=== PATIENT | male | born 1970 | race Caucasian/White ===

== ENCOUNTER 2018-02-03 20:19 | Emergency (ER) | payer OTHER ==
[2018-02-03 20:52] LABS: ADD MAN DIFF? NO
[2018-02-03 20:57] LABS: BASO # 0.1 x10^3/uL (0.0-0.2); BASO % 1 % (0-3); EOS # 0.4 x10^3/uL (0.0-0.7); EOS % 5 % (0-3); HEMATOCRIT 40.9 % (39.0-53.0); HEMOGLOBIN 14.3 g/dL (13.0-17.5); LYMPH # 1.7 x10^3/uL (1.0-4.8); LYMPH % 25 % (24-48); MEAN CORPUSCULAR HEMOGLOBIN 30 pg (25-35); MEAN CORPUSCULAR HGB CONC 35 g/dL (31-37); MEAN CORPUSCULAR VOLUME 87 fL (79-100); MONO # 0.4 x10^3/uL (0.0-1.1); MONO % 6 % (0-9); NEUT # 4.2 x10^3uL (1.8-7.7); NEUT % 62 % (31-73); PLATELET COUNT 145 x10^3/uL (140-400); RED BLOOD COUNT 4.72 x10^6/uL (4.30-5.70); RED CELL DISTRIBUTION WIDTH 13.3 % (11.5-14.5); WHITE BLOOD COUNT 6.8 x10^3/uL (4.0-11.0)
[2018-02-03 21:23] LABS: BILIRUBIN,URINE NEGATIVE (NEG); CLARITY,URINE CLEAR; COLOR,URINE YELLOW; GLUCOSE,URINE 500 mg/dL (NEG); NITRITE,URINE NEGATIVE (NEG); PROTEIN,URINE NEGATIVE (NEG-TRACE); UROBILINOGEN,URINE 0.2 mg/dL (0.2 mg/dL)
[2018-02-03 21:28] LABS: BACTERIA,URINE 0 /HPF (0-FEW); RBC,URINE 0 /HPF (0-2); SQUAMOUS EPITHELIAL CELL,UR OCC /LPF; WBC,URINE OCC /HPF (0-4)
[2018-02-03 21:40] LABS: ANION GAP 9 (6-14); BLOOD UREA NITROGEN 21 mg/dL (8-26); BUN/CREATININE RATIO 19 (6-20); CARBON DIOXIDE 27 mmol/L (21-32); CHLORIDE 103 mmol/L (98-107); CREATININE 1.1 mg/dL (0.7-1.3); GFR 71.1; GLUCOSE 190 mg/dL (70-99); POTASSIUM 4.1 mmol/L (3.5-5.1); SODIUM 139 mmol/L (136-145)
[2018-02-03 21:46] LABS: ALBUMIN 3.2 g/dL (3.4-5.0); ALBUMIN/GLOBULIN RATIO 0.7 (1.0-1.7); ALK PHOS 135 U/L (46-116); ALT (SGPT) 136 U/L (16-63); AST (SGOT) 73 U/L (15-37); TOTAL BILIRUBIN 0.4 mg/dL (0.2-1.0); TOTAL PROTEIN 7.6 g/dL (6.4-8.2)
[2018-02-03 21:51] LABS: TROPONINI < 0.017 ng/mL (0.000-0.055)
[2018-02-03 21:55] LABS: CKMB INDEX 0.9 % (0-4); CKMB MASS 1.4 ng/mL (0.0-3.6); CREATINE KINASE 150 U/L (39-308)
== END 2018-02-03 23:24 | disposition home or self-care (01) ==
LOC: ER 20:19
DX: R07.89 Other chest pain (principal); I10 Essential (primary) hypertension; E78.00 Pure hypercholesterolemia, unspecified; Z88.5 Allergy status to narcotic agent; Z88.8 Allergy status to other drugs, medicaments and biological substances
CPT/HCPCS: 36415; 71045; 80053; 81001; 82553; 84484; 85025; 85379; 93005; 99285-25

== ENCOUNTER → 2018-09-07 | Outpatient (CLI) | payer OTHER ==
[2018-02-03 23:15] VITALS: BP 109/60
--- NOTE | 2018-09-07 10:08 | KCIC ---
EXAM: Abdomen sonogram. HISTORY: Elevated liver enzymes laboratory values. TECHNIQUE: Sonographic imaging of the abdomen was performed. COMPARISON: None. FINDINGS: The liver is enlarged. There is hepatic steatosis. No focal hepatic lesion is seen. The common bile duct is upper normal in caliber to minimally dilated for patient age, measuring 5.6 mm. The gallbladder and right kidney are unremarkable. The pancreas, aorta and inferior vena cava are predominantly obscured due to body habitus and bowel gas. IMPRESSION: 1. Hepatomegaly and hepatic steatosis. 2. Predominantly obscured midline structures due to and body habitus and bowel gas. 3. Upper normal caliber to minimally dilated common bile duct for patient age. Electronically signed by: Joanna Farfan MD (09/07/2018 10:05 AM) [facility]
== END | disposition home or self-care (01) ==
LOC: KCIC US 09:07
PROVIDERS: ATTEND Family Medicine
DX: K76.0 Fatty (change of) liver, not elsewhere classified (principal); R16.0 Hepatomegaly, not elsewhere classified
CPT/HCPCS: 76705

== ENCOUNTER 2019-03-17 17:23 | Inpatient (IN) | payer OTHER ==
[~2019-03-17] VITALS: Ht 182.9 cm; Wt 159.3 kg
[2019-03-17] MEDS: IV NORMAL SALINE 1000ML BAG 1,000 ML IV SCH ×2 (05:00→22:55)
[2019-03-17] MEDS ORDERED: NITROGLYCERIN SUBLINGUAL 0.4 MG BOTTLE OF 25. SL PRN ×2 (17:45→20:30)
[2019-03-17] MEDS ORDERED: MORPHINE SULFATE 4 MG/ML VIAL. IV/SQ PRN (17:45)
[2019-03-17 17:56] LABS: BASO # 0.1 x10^3/uL (0.0-0.2); BASO % 1 % (0-3); EOS # 0.1 x10^3/uL (0.0-0.7); EOS % 1 % (0-3); HEMATOCRIT 39.8 % (39.0-53.0); HEMOGLOBIN 13.8 g/dL (13.0-17.5); LYMPH # 0.7 x10^3/uL (1.0-4.8); LYMPH % 6 % (24-48); MEAN CORPUSCULAR HEMOGLOBIN 30 pg (25-35); MEAN CORPUSCULAR HGB CONC 35 g/dL (31-37); MEAN CORPUSCULAR VOLUME 86 fL (79-100); MONO # 0.5 x10^3/uL (0.0-1.1); MONO % 4 % (0-9); NEUT # 10.6 x10^3/uL (1.8-7.7); NEUT % 89 % (31-73); PLATELET COUNT 127 x10^3/uL (140-400); RED BLOOD COUNT 4.64 x10^6/uL (4.30-5.70); RED CELL DISTRIBUTION WIDTH 13.9 % (11.5-14.5); WHITE BLOOD COUNT 11.9 x10^3/uL (4.0-11.0)
[2019-03-17 18:07] LABS: PROTHROMBIN TIME PATIENT 13.8 SEC (11.7-14.0)
[2019-03-17 18:10] LABS: CALCIUM 9.3 mg/dL (8.5-10.1); CREATININE 1.3 mg/dL (0.7-1.3); GFR 58.4; POTASSIUM 3.8 mmol/L (3.5-5.1)
[2019-03-17 18:14] LABS: ALBUMIN 3.7 g/dL (3.4-5.0); ALBUMIN/GLOBULIN RATIO 0.8 (1.0-1.7); MAGNESIUM 1.6 mg/dL (1.8-2.4); TOTAL BILIRUBIN 0.7 mg/dL (0.2-1.0); TOTAL PROTEIN 8.2 g/dL (6.4-8.2)
[2019-03-17 18:34] LABS: % BANDS 20 % (0-9); % EOS 1 % (0-5); % LYMPHS 9 % (24-48); % MONOS 3 % (0-10); % SEGS 67 % (35-66)
[2019-03-17 18:38] LABS: PLT ESTIMATE DECREASED (ADEQUATE); POLYCHROMASIA SLIGHT
[2019-03-17 19:10] LABS: BILIRUBIN,URINE NEGATIVE (NEG); CLARITY,URINE CLEAR; COLOR,URINE YELLOW; NITRITE,URINE NEGATIVE (NEG); PH,URINE 5.5; PROTEIN,URINE NEGATIVE (NEG-TRACE); UROBILINOGEN,URINE 0.2 mg/dL (0.2 mg/dL)
[2019-03-17 19:17] LABS: AMPHETAMINE/METHAMPHETAMINE NEG (NEG); BARBITURATES NEG (NEG); BENZODIAZEPINES NEG (NEG); CANNABINOIDS NEG (NEG); COCAINE NEG (NEG); METHADONE NEG (NEG); OPIATES NEG (NEG); PHENCYCLIDINE NEG (NEG)
[2019-03-17 19:26] LABS: BACTERIA,URINE 0 /HPF (0-FEW); RBC,URINE 0 /HPF (0-2); SQUAMOUS EPITHELIAL CELL,UR OCC /LPF; WBC,URINE OCC /HPF (0-4)
--- NOTE | 2019-03-17 19:26 | RAD ---
AP portable chest radiograph 03/17/2019 Clinical History: Chest pain. An AP erect portable digital radiograph of the chest was obtained. Comparison study is dated 01/14/2018. The cardiac and mediastinal silhouettes are within normal limits in size and configuration. No acute pulmonary infiltrate is seen. No pleural effusion or pneumothorax is noted. The osseous structures are grossly intact. Impression: No acute abnormality is seen. Electronically signed by: Bernard Ventura MD (03/17/2019 7:23 PM) [facility]
[2019-03-17] MEDS ORDERED: ONDANSETRON PF 4 MG/2 ML VIAL. IV PRN (20:30)
[2019-03-17] MEDS ORDERED: PIPERACILLIN/TAZOBACTAM 4.5 GM in IV NORMAL SALINE 100ML 100 ML IV ONE (20:30)
[2019-03-17] MEDS ORDERED: ACETAMINOPHEN 325 MG TABLET. PO PRN (20:30)
[2019-03-17] MEDS ORDERED: MORPHINE SULFATE 4 MG/ML VIAL. IV PRN (20:30)
--- NOTE | 2019-03-17 20:39 | PHYS DOC ---
Past Medical History Past Medical History: Diabetes-Type II, Hypertension, IN Additional Past Medical Histor: CELLULITIS Past Surgical History: Other Additional Past Surgical Histo: BILATERAL MENISCUS REPAIR TO KNEES Alcohol Use: Occasionally Drug Use: None Adult General Chief Complaint Chief Complaint: MULTIPLE COMPLAINTS HPI HPI Patient is a 48 year old male with history of 2 mild MIs per his own statement hypertension, diabetes type 2, who presents to the ED today complaining of 3 out of 10 substernal achy intermittent chest pain nonradiating in nature but also has right arm pain, symptoms began at 1 PM today. Patient is also complaining of nausea vomiting and diaphoresis. Denies any exacerbating or relieving factors to his symptoms. PCP Dr. Leland Gonzáles Review of Systems Review of Systems Constitutional: Denies fever or chills [] Eyes: Denies change in visual acuity, redness, or eye pain [] HENT: Denies nasal congestion or sore throat [] Respiratory: Denies cough or shortness of breath [] Cardiovascular: Reports substernal chest pain GI: Denies abdominal pain, nausea, vomiting, bloody stools or diarrhea [] : Denies dysuria or hematuria [] Musculoskeletal: Denies back pain or joint pain [] Integument: Denies rash or skin lesions [] Neurologic: Denies headache, focal weakness or sensory changes [] All other systems were reviewed and found to be within normal limits, except as documented in this note. Current Medications Current Medications Current Medications Medications (Trade) Dose Ordered Sig/Mariama Start Time Stop Time Status Last Admin Dose Admin Acetaminophen (Tylenol) 650 mg PRN Q4HRS PRN 03/17/19 20:30 03/18/19 20:29 UNV Morphine Sulfate (Morphine Sulfate) 4 mg PRN Q2HR PRN 03/17/19 20:30 03/18/19 20:29 UNV Nitroglycerin (Nitrostat) 0.4 mg PRN Q5MIN PRN 03/17/19 20:30 03/18/19 20:29 UNV Ondansetron HCl (Zofran) 4 mg PRN Q8HRS PRN 03/17/19 20:30 03/18/19 20:29 UNV Piperacillin Sod/ Tazobactam Sod 4.5 gm/Sodium Chloride 100 ml @ 200 mls/hr 1X ONCE 03/17/19 20:30 03/17/19 20:59 UNV Sodium Chloride 2,340 ml @ 2,340 mls/hr Q1H 03/17/19 20:16 UNV Allergies Allergies Allergies Coded Allergies Type Severity Reaction Last Updated Verified ibuprofen Allergy Severe Swelling 11/26/15 Yes naproxen Allergy Severe Swelling 11/26/15 Yes Physical Exam Physical Exam Constitutional: Obese patient. Well developed, well nourished, no acute distress, non-toxic appearance. [] HENT: Normocephalic, atraumatic, bilateral external ears normal, oropharynx moist, no oral exudates, nose normal. [] Eyes: PERRLA, EOMI, conjunctiva normal, no discharge. [] Neck: Normal range of motion, no tenderness, supple, no stridor. [] Cardiovascular:Heart rate regular rhythm, no murmur [] Lungs & Thorax: Bilateral breath sounds clear to auscultation [] Abdomen: Bowel sounds normal, soft, no tenderness, no masses, no pulsatile masses. [] Skin: Warm, dry, no erythema, no rash. [] Back: No tenderness, no CVA tenderness. [] Extremities: No tenderness, no cyanosis, no clubbing, ROM intact, bilateral lower extremities with palpable discoloration chronic in nature from previous cellulitis. There is scabbing wounds on the right craven. +2 bilateral pedal pu lses. Neurologic: Alert and oriented X 3, normal motor function, normal sensory function, no focal deficits noted. [] Psychologic: Affect normal, judgement normal, mood normal. [] Current Patient Data Vital Signs Vital Signs Date Time Temp Pulse Resp B/P (MAP) Pulse Ox O2 Delivery O2 Flow Rate FiO2 03/17/19 18:42 74 97/57 (70) 90 Nasal Cannula 2.0 03/17/19 17:30 98.8 16 98.8 Lab Values Laboratory Tests Test 03/17/19 17:50 03/17/19 19:05 White Blood Count 11.9 x10^3/uL (4.0-11.0) H Red Blood Count 4.64 x10^6/uL (4.30-5.70) Hemoglobin 13.8 g/dL (13.0-17.5) Hematocrit 39.8 % (39.0-53.0) Mean Corpuscular Volume 86 fL (79-100) Mean Corpuscular Hemoglobin 30 pg (25-35) Mean Corpuscular Hemoglobin Concent 35 g/dL (31-37) Red Cell Distribution Width 13.9 % (11.5-14.5) Platelet Count 127 x10^3/uL (140-400) L Neutrophils (%) (Auto) 89 % (31-73) H Lymphocytes (%) (Auto) 6 % (24-48) L Monocytes (%) (Auto) 4 % (0-9) Eosinophils (%) (Auto) 1 % (0-3) Basophils (%) (Auto) 1 % (0-3) Neutrophils # (Auto) 10.6 x10^3/uL (1.8-7.7) H Lymphocytes # (Auto) 0.7 x10^3/uL (1.0-4.8) L Monocytes # (Auto) 0.5 x10^3/uL (0.0-1.1) Eosinophils # (Auto) 0.1 x10^3/uL (0.0-0.7) Basophils # (Auto) 0.1 x10^3/uL (0.0-0.2) Segmented Neutrophils % 67 % (35-66) H Band Neutrophils % 20 % (0-9) H Lymphocytes % 9 % (24-48) L Monocytes % 3 % (0-10) Eosinophils % 1 % (0-5) Platelet Estimate Decreased (ADEQUATE) Polychromasia Slight Prothrombin Time 13.8 SEC (11.7-14.0) Prothrombin Time INR 1.1 (0.8-1.1) Activated Partial Thromboplast Time 29 SEC (24-38) Sodium Level 139 mmol/L (136-145) Potassium Level 3.8 mmol/L (3.5-5.1) Chloride Level 103 mmol/L (98-107) Carbon Dioxide Level 24 mmol/L (21-32) Anion Gap 12 (6-14) Blood Urea Nitrogen 21 mg/dL (8-26) Creatinine 1.3 mg/dL (0.7-1.3) Estimated GFR (Cockcroft-Gault) 58.4 BUN/Creatinine Ratio 16 (6-20) Glucose Level 163 mg/dL (70-99) H Calcium Level 9.3 mg/dL (8.5-10.1) Magnesium Level 1.6 mg/dL (1.8-2.4) L Total Bilirubin 0.7 mg/dL (0.2-1.0) Aspartate Amino Transferase (AST) 46 U/L (15-37) H Alanine Aminotransferase (ALT) 86 U/L (16-63) H Alkaline Phosphatase 134 U/L (46-116) H Creatine Kinase 166 U/L (39-308) Creatine Kinase MB (Mass) 1.2 ng/mL (0.0-3.6) Creatine Kinase MB Relative Index 0.7 % (0-4) Troponin I Quantitative < 0.017 ng/mL (0.000-0.055) SQ-Ikf-H-Type Natriuretic Peptide 51 pg/mL (0-124) Total Protein 8.2 g/dL (6.4-8.2) Albumin 3.7 g/dL (3.4-5.0) Albumin/Globulin Ratio 0.8 (1.0-1.7) L Thyroid Stimulating Hormone (TSH) 1.310 uIU/mL (0.358-3.74) Ethyl Alcohol Level < 10 mg/dL (0-10) Urine Collection Type Unknown Urine Color Yellow Urine Clarity Clear Urine pH 5.5 Urine Specific [place] 1.025 Urine Protein Negative mg/dL (NEG-TRACE) Urine Glucose (UA) 250 mg/dL (NEG) Urine Ketones (Stick) Negative mg/dL (NEG) Urine Blood Negative (NEG) Urine Nitrite Negative (NEG) Urine Bilirubin Negative (NEG) Urine Urobilinogen Dipstick 0.2 mg/dL (0.2 mg/dL) Urine Leukocyte Esterase Negative (NEG) Urine RBC 0 /HPF (0-2) Urine WBC Occ /HPF (0-4) Urine Squamous Epithelial Cells Occ /LPF Urine Bacteria 0 /HPF (0-FEW) Urine Opiates Screen Neg (NEG) Urine Methadone Screen Neg (NEG) Urine Barbiturates Neg (NEG) Urine Phencyclidine Screen Neg (NEG) Urine Amphetamine/Methamphetamine Neg (NEG) Urine Benzodiazepines Screen Neg (NEG) Urine Cocaine Screen Neg (NEG) Urine Cannabinoids Screen Neg (NEG) Urine Ethyl Alcohol Neg (NEG) Laboratory Tests 03/17/19 17:50 Laboratory Tests 03/17/19 17:50 EKG EKG [address] Francis sinus rhythm HR 87 no STEMI[] Radiology/Procedures Radiology/Procedures []PROCEDURE: PORTABLE CHEST 1V AP portable chest radiograph 03/17/2019 Clinical History: Chest pain. An AP erect portable digital radiograph of the chest was obtained. Comparison study is dated 01/14/2018. The cardiac and mediastinal silhouettes are within normal limits in size and configuration. No acute pulmonary infiltrate is seen. No pleural effusion or pneumothorax is noted. The osseous structures are grossly intact. Impression: No acute abnormality is seen. Electronically signed by: Bernard Ventura MD (03/17/2019 7:23 PM) [facility] DICTATED and SIGNED BY: BERNARD VENTURA MD DATE: 03/17/191922 Course & Med Decision Making Course & Med Decision Making Pertinent Labs and Imaging studies reviewed. (See chart for details) This is a 48-year-old male patient who presents to the ED today with complaints of chest pain, symptoms began today. Vitals on arrival to the ED temperature 98.8, heart rate 89, respirations 16, blood pressure 123/59, O2 sats 97% on room air. EKG is negative, chest x-ray is negative. Troponin is normal. CBC with a WBC of 11.9 with a left shift as well as bandemia. CMP with AST of 46, ALT of 86, a.m. care 134. Magnesium 1.6, IV magnesium was ordered. I went to reevaluate patient, he was diaphoretic again. He states he feels like he is having chills and breaking a fever. Temperature is normal. feels patient could be getting infection from the scabbed up regions on the right craven that were from previous cellulitis. I ordered more labwork including sepsis workup and kevin Spoke with Dr. Gonzáles who accepted patient for admission Dragon Disclaimer Dragon Disclaimer This electronic medical record was generated, in whole or in part, using a voice recognition dictation system. The HEART Score for CP Pts HEART Score for Chest Pain: HEART Score for Chest Pain Response (Comments) Value History Slighlty/Non-Suspicious 0 ECG Normal 0 Age >45 - < 65 1 Risk Factors 1 or 2 Risk Factors 1 Troponin < Normal Limit 0 Total 2 Risk Factors: Risk Factors: DM, Current or recent (<one month) smoker, HTN, HLP, family history of CAD, obesity. Risk Scores: Score 0 - 3: 2.5% MACE over next 6 weeks - Discharge Home Score 4 - 6: 20.3% MACE over next 6 weeks - Admit for Clinical Observation Score 7 - 10: 72.7% MACE over next 6 weeks - Early Invasive Strategies Departure Departure Impression: Primary Impression: Chest pain Disposition: ADMITTED INPATIENT Condition: STABLE Referrals: LELAND GONZÁLES MD (PCP) Problem Qualifiers Primary Impression: Chest pain Chest pain type: unspecified Qualified Codes: R07.9 - Chest pain, unspecified MALU SUNSHINE MANAGER RESPIRATORY Mar 17, 2019 20:39
--- NOTE | 2019-03-17 21:45 | NUR ---
The patient, LÓPEZ CABA, 48 y/o, M admitted by LELAND GONZÁLES MD, was given written information regarding hospital policies, unit procedures and contact persons. PT ARRIVED VIA CART FROM ER. 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 BROUGHT UP HIS CPAP. AND HIS HOME MEDS. THEN HAD MEDS TO ADD THAT WERE NOT BROUGHT. DID DIABETIC TEACHING. PT CHECKS BS ONCE A WEEK, HIS DR WANTS BID. HIS LOWER LEGS ARE REDDISH BROWN THIGHT AND THICK SKIN. RIGHT IS WORSE THEN THE LEFT. RIGHT HAS SCABS ON IT TWO SMALL ANTERIORLY. THAT HE SAID WAS FROM HIS LEGS WEEPING, AND THAT HE HAS HAD CELLULITIS BEFORE. Valuables were checked and DOCUMENTED IN THE CHART. LCRN .
[2019-03-17] MEDS ORDERED: MAGNESIUM SULFATE 1GM 100 ML IV ONE (22:30)
[2019-03-17 23:00] VITALS: BP 111/50
--- NOTE | 2019-03-18 00:33 | RAD ---
Ultrasound of the right upper quadrant of the abdomen 03/17/2019 CLINICAL HISTORY: Elevated liver function tests. TECHNIQUE: A real-time ultrasound examination of the right upper quadrant abdomen was performed. Multiple images were obtained. FINDINGS: Comparison study is dated 09/07/2018. The gallbladder is well-distended. No gallstones are visualized. The gallbladder wall thickness is within normal limits. No pericholecystic fluid is seen. The common bile duct measures 4 mm in diameter which is within normal limits. The liver is enlarged measuring 22.5 cm in length. Increased echogenicity of the liver parenchyma is seen consistent with fatty infiltration. The visualized portions of pancreas and right kidney are within normal limits. No free fluid is seen. IMPRESSION: Mild hepatomegaly with fatty infiltration. Otherwise negative study. Electronically signed by: Bernard Ventura MD (03/18/2019 12:30 AM) [facility]
[2019-03-18 03:00] VITALS: BP 137/60
[2019-03-18] MEDS: IV NORMAL SALINE 1000ML BAG 1,000 ML IV SCH ×2 (05:00→13:21)
[2019-03-18] MEDS ORDERED: ASPI81TA59 PO (05:12)
[2019-03-18] MEDS ORDERED: FURO20TA3 PO (05:12)
[2019-03-18] MEDS ORDERED: DOCU100T11 PO (05:18)
[2019-03-18] MEDS ORDERED: CHOL100013 PO (05:18)
[2019-03-18] MEDS ORDERED: INSU100V13 SQ (05:18)
[2019-03-18] MEDS ORDERED: POTA20TA82 PO (05:18)
[2019-03-18] MEDS ORDERED: OMEG1CAP29 PO (05:18)
[2019-03-18] MEDS ORDERED: METF10007 PO (05:18)
[2019-03-18] MEDS ORDERED: GLIM4TAB2 PO (05:20)
[2019-03-18] MEDS ORDERED: LOSA1TAB22 PO (05:20)
--- NOTE | 2019-03-18 05:40 | EKG ---
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
[2019-03-18 07:00] VITALS: BP 119/56
[2019-03-18 08:31] LABS: BASO % 0 % (0-3); EOS % 0 % (0-3); HEMATOCRIT 39.3 % (39.0-53.0); HEMOGLOBIN 13.5 g/dL (13.0-17.5); LYMPH # 0.6 x10^3/uL (1.0-4.8); LYMPH % 5 % (24-48); MEAN CORPUSCULAR HEMOGLOBIN 30 pg (25-35); MEAN CORPUSCULAR HGB CONC 35 g/dL (31-37); MEAN CORPUSCULAR VOLUME 86 fL (79-100); MONO # 0.4 x10^3/uL (0.0-1.1); MONO % 4 % (0-9); NEUT # 9.8 x10^3/uL (1.8-7.7); NEUT % 90 % (31-73); PLATELET COUNT 111 x10^3/uL (140-400); RED BLOOD COUNT 4.56 x10^6/uL (4.30-5.70); RED CELL DISTRIBUTION WIDTH 13.7 % (11.5-14.5); WHITE BLOOD COUNT 10.8 x10^3/uL (4.0-11.0)
[2019-03-18 08:32] LABS: ALBUMIN 3.3 g/dL (3.4-5.0); ALBUMIN/GLOBULIN RATIO 0.7 (1.0-1.7); CALCIUM 9.1 mg/dL (8.5-10.1); CREATININE 1.2 mg/dL (0.7-1.3); GFR 64.1; POTASSIUM 3.4 mmol/L (3.5-5.1); TOTAL BILIRUBIN 1.1 mg/dL (0.2-1.0)
[2019-03-18 08:53] LABS: MAGNESIUM 1.9 mg/dL (1.8-2.4)
[2019-03-18 08:57] LABS: CHOLESTEROL/HDL RATIO 3.3
--- NOTE | 2019-03-18 09:21 | PDOC2 ---
CARDIAC CONSULT DATE OF CONSULT Date of Consult DATE: 03/18/19 TIME: 09:16 REASON FOR CONSULT Reason for Consult: Chest pain REFERRING PHYSICIAN Referring Physician: Artie SOURCE Source: Chart review, Patient HISTORY OF PRESENT ILLNESS HISTORY OF PRESENT ILLNESS This is a pleasant 48 yo male admitted for complains of chest pain and right leg swelling. Reports no exertional CP, no HALL. 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 He has chronic LE dermatitis and has had cellulitis 2 yrs ago. His right leg started becoming red and tender yesterday. Reports that he has been doing well till yesterday at noon. He felt suddenly weak and no energy. and was feeling some chills. A litlle later he started having some chest tightness with some SOA and also some right arm tingling with some nausea. No vomiting. Reports no recent falls or injury. No recent long distance travel. No wheezing. Denies any PND or orthopnea. No palpitations or any syncopal spells but a little dizzy yesterday. Was told of CAD in the past but no VTE, arrhythmias. No bleeding or clotting disorders. PAST MEDICAL HISTORY Cardiovascular: CAD, HTN, Hyperlipidemia, Other (chronic LE venous dermatitis) Pulmonary: Other (RANJIT) CENTRAL NERVOUS SYSTEM: Other (No pertinent history) GI: No pertinent hx Heme/Onc: No pertinent hx Hepatobiliary: No pertinent hx Psych: No pertinent hx Musculoskeletal: Osteoarthritis Rheumatologic: No pertinent hx Infectious disease: No pertinent hx ENT: No pertinent hx Renal/: No pertinent hx Endocrine: Diabetes (2) Dermatology: No pertinent hx PAST SURGICAL HISTORY Past Surgical History: Arthroscopy (bilateral meniscus repair) FAMILY HISTORY Family History: Hypertension SOCIAL HISTORY Smoke: No ALCOHOL: none Drugs: None Lives: with Family CURRENT MEDICATIONS CURRENT MEDICATIONS Current Medications Medications (Trade) Dose Ordered Sig/Mariama Route PRN Reason Start Time Stop Time Status Last Admin Dose Admin Sodium Chloride 1,000 ml @ 2,340 mls/hr Q26M IV 03/17/19 20:16 03/17/19 21:16 DC 03/17/19 22:56 Piperacillin Sod/ Tazobactam Sod 4.5 gm/Sodium Chloride 100 ml @ 200 mls/hr 1X ONCE IV 03/17/19 20:30 03/17/19 20:59 DC 03/17/19 22:56 Morphine Sulfate (Morphine Sulfate) 4 mg PRN Q2HR PRN IV PAIN 03/17/19 20:30 03/18/19 20:29 03/18/19 02:15 Acetaminophen (Tylenol) 650 mg PRN Q4HRS PRN PO FEVER 03/17/19 20:30 03/18/19 20:29 03/18/19 08:45 Magnesium Sulfate/ Dextrose 100 ml @ 100 mls/hr 1X ONCE IV 03/17/19 22:30 03/17/19 23:29 DC 03/17/19 22:56 ALLERGIES ALLERGIES: Coded Allergies: ibuprofen (Verified Allergy, Severe, Swelling, 11/26/15) throat naproxen (Verified Allergy, Severe, Swelling, 11/26/15) throat ROS Review of System 14 point ROS evaluated with pertinent positives noted per HPI PHYSICAL EXAM General: Alert, Oriented X3, Cooperative, No acute distress HEENT: Atraumatic, Mucous membr. moist/pink Lungs: Clear to auscultation, Normal air movement Heart: Regular rate (SR), Normal S1, Normal S2, Other (GUNJAN 3/6 systolic murmur) Abdomen: Soft, No tenderness, Other (obese) Skin: No breakdown, Other (LE venous dermatitis; erythema to RLE; no wounds; 2+ pedal pulses) Neuro: Normal speech, Sensation intact Psych/Mental Status: Mental status NL, Mood NL MUSCULOSKELETAL: Osteoarthritic changes both hands VITALS/I&O VITALS/I&O: Vital Signs Date Time Temp Pulse Resp B/P (MAP) Pulse Ox O2 Delivery O2 Flow Rate FiO2 03/18/19 07:00 100.4 83 16 119/56 (77) 98 Nasal Cannula 3.0 100.4 I & O 03/17/19 03/17/19 03/18/19 14:59 22:59 06:59 Intake Total 800 ml Output Total 450 ml Balance 350 ml LABS Lab: Laboratory Tests Test 03/17/19 17:50 03/17/19 19:05 03/17/19 20:50 03/17/19 20:55 White Blood Count 11.9 x10^3/uL (4.0-11.0) H Red Blood Count 4.64 x10^6/uL (4.30-5.70) Hemoglobin 13.8 g/dL (13.0-17.5) Hematocrit 39.8 % (39.0-53.0) Mean Corpuscular Volume 86 fL (79-100) Mean Corpuscular Hemoglobin 30 pg (25-35) Mean Corpuscular Hemoglobin Concent 35 g/dL (31-37) Red Cell Distribution Width 13.9 % (11.5-14.5) Platelet Count 127 x10^3/uL (140-400) L Neutrophils (%) (Auto) 89 % (31-73) H Lymphocytes (%) (Auto) 6 % (24-48) L Monocytes (%) (Auto) 4 % (0-9) Eosinophils (%) (Auto) 1 % (0-3) Basophils (%) (Auto) 1 % (0-3) Neutrophils # (Auto) 10.6 x10^3/uL (1.8-7.7) H Lymphocytes # (Auto) 0.7 x10^3/uL (1.0-4.8) L Monocytes # (Auto) 0.5 x10^3/uL (0.0-1.1) Eosinophils # (Auto) 0.1 x10^3/uL (0.0-0.7) Basophils # (Auto) 0.1 x10^3/uL (0.0-0.2) Segmented Neutrophils % 67 % (35-66) H Band Neutrophils % 20 % (0-9) H Lymphocytes % 9 % (24-48) L Monocytes % 3 % (0-10) Eosinophils % 1 % (0-5) Platelet Estimate Decreased (ADEQUATE) Polychromasia Slight Prothrombin Time 13.8 SEC (11.7-14.0) Prothrombin Time INR 1.1 (0.8-1.1) Activated Partial Thromboplast Time 29 SEC (24-38) Sodium Level 139 mmol/L (136-145) Potassium Level 3.8 mmol/L (3.5-5.1) Chloride Level 103 mmol/L (98-107) Carbon Dioxide Level 24 mmol/L (21-32) Anion Gap 12 (6-14) Blood Urea Nitrogen 21 mg/dL (8-26) Creatinine 1.3 mg/dL (0.7-1.3) Estimated GFR (Cockcroft-Gault) 58.4 BUN/Creatinine Ratio 16 (6-20) Glucose Level 163 mg/dL (70-99) H Calcium Level 9.3 mg/dL (8.5-10.1) Magnesium Level 1.6 mg/dL (1.8-2.4) L Total Bilirubin 0.7 mg/dL (0.2-1.0) Aspartate Amino Transferase (AST) 46 U/L (15-37) H Alanine Aminotransferase (ALT) 86 U/L (16-63) H Alkaline Phosphatase 134 U/L (46-116) H Creatine Kinase 166 U/L (39-308) Creatine Kinase MB (Mass) 1.2 ng/mL (0.0-3.6) Creatine Kinase MB Relative Index 0.7 % (0-4) Troponin I Quantitative < 0.017 ng/mL (0.000-0.055) < 0.017 ng/mL (0.000-0.055) DZ-Bfn-L-Type Natriuretic Peptide 51 pg/mL (0-124) Total Protein 8.2 g/dL (6.4-8.2) Albumin 3.7 g/dL (3.4-5.0) Albumin/Globulin Ratio 0.8 (1.0-1.7) L Thyroid Stimulating Hormone (TSH) 1.310 uIU/mL (0.358-3.74) Ethyl Alcohol Level < 10 mg/dL (0-10) Urine Collection Type Unknown Urine Color Yellow Urine Clarity Clear Urine pH 5.5 Urine Specific [place] 1.025 Urine Protein Negative mg/dL (NEG-TRACE) Urine Glucose (UA) 250 mg/dL (NEG) Urine Ketones (Stick) Negative mg/dL (NEG) Urine Blood Negative (NEG) Urine Nitrite Negative (NEG) Urine Bilirubin Negative (NEG) Urine Urobilinogen Dipstick 0.2 mg/dL (0.2 mg/dL) Urine Leukocyte Esterase Negative (NEG) Urine RBC 0 /HPF (0-2) Urine WBC Occ /HPF (0-4) Urine Squamous Epithelial Cells Occ /LPF Urine Bacteria 0 /HPF (0-FEW) Urine Opiates Screen Neg (NEG) Urine Methadone Screen Neg (NEG) Urine Barbiturates Neg (NEG) Urine Phencyclidine Screen Neg (NEG) Urine Amphetamine/Methamphetamine Neg (NEG) Urine Benzodiazepines Screen Neg (NEG) Urine Cocaine Screen Neg (NEG) Urine Cannabinoids Screen Neg (NEG) Urine Ethyl Alcohol Neg (NEG) Lactic Acid Level 1.4 mmol/L (0.4-2.0) Test 03/17/19 23:50 03/18/19 00:35 03/18/19 07:25 Troponin I Quantitative < 0.017 ng/mL (0.000-0.055) Glucose (Fingerstick) 241 mg/dL (70-99) H White Blood Count 10.8 x10^3/uL (4.0-11.0) Red Blood Count 4.56 x10^6/uL (4.30-5.70) Hemoglobin 13.5 g/dL (13.0-17.5) Hematocrit 39.3 % (39.0-53.0) Mean Corpuscular Volume 86 fL (79-100) Mean Corpuscular Hemoglobin 30 pg (25-35) Mean Corpuscular Hemoglobin Concent 35 g/dL (31-37) Red Cell Distribution Width 13.7 % (11.5-14.5) Platelet Count 111 x10^3/uL (140-400) L Neutrophils (%) (Auto) 90 % (31-73) H Lymphocytes (%) (Auto) 5 % (24-48) L Monocytes (%) (Auto) 4 % (0-9) Eosinophils (%) (Auto) 0 % (0-3) Basophils (%) (Auto) 0 % (0-3) Neutrophils # (Auto) 9.8 x10^3/uL (1.8-7.7) H Lymphocytes # (Auto) 0.6 x10^3/uL (1.0-4.8) L Monocytes # (Auto) 0.4 x10^3/uL (0.0-1.1) Eosinophils # (Auto) 0.0 x10^3/uL (0.0-0.7) Basophils # (Auto) 0.0 x10^3/uL (0.0-0.2) Sodium Level 139 mmol/L (136-145) Potassium Level 3.4 mmol/L (3.5-5.1) L Chloride Level 103 mmol/L (98-107) Carbon Dioxide Level 26 mmol/L (21-32) Anion Gap 10 (6-14) Blood Urea Nitrogen 19 mg/dL (8-26) Creatinine 1.2 mg/dL (0.7-1.3) Estimated GFR (Cockcroft-Gault) 64.1 BUN/Creatinine Ratio 16 (6-20) Glucose Level 209 mg/dL (70-99) H Calcium Level 9.1 mg/dL (8.5-10.1) Magnesium Level 1.9 mg/dL (1.8-2.4) Total Bilirubin 1.1 mg/dL (0.2-1.0) H Aspartate Amino Transferase (AST) 40 U/L (15-37) H Alanine Aminotransferase (ALT) 79 U/L (16-63) H Alkaline Phosphatase 107 U/L (46-116) Total Protein 8.0 g/dL (6.4-8.2) Albumin 3.3 g/dL (3.4-5.0) L Albumin/Globulin Ratio 0.7 (1.0-1.7) L Triglycerides Level 126 mg/dL (0-150) Cholesterol Level 155 mg/dL (0-200) LDL Cholesterol, Calculated 83 mg/dL (0-100) VLDL Cholesterol, Calculated 25 mg/dL (0-40) Non-HDL Cholesterol Calculated 108 mg/dL (0-129) HDL Cholesterol 47 mg/dL (40-60) Cholesterol/HDL Ratio 3.3 Laboratory Tests 03/17/19 17:50 03/18/19 07:25 Laboratory Tests 03/17/19 17:50 03/18/19 07:25 ASSESSMENT/PLAN ASSESSMENT/PLAN 1. Chest pain: trops normal, EKG SR without acute changes by comparison. Differentials include such as bronchospasm, ischemia, PE, or esophagitis. 2. Suspect Sepsis with RLE cellulitis: defer to PCP. Neg DVT 3. HTN: controlled 4. HLP: initially hypotensive, no home statin 5. DM2: BG not controlled. 6. Morbid obesity: BMI 47, mostly sedentary 7. RANJIT: CPAP compliant 8. Suspect SANTIAGO with mild transaminitis 9. Thrombocytopenia: Suspect reactive 10. LE chronic venous dermatitis 11. Reported hx of CAD: [facility] 2008 reported [place], no intervention. 12. Murmur: suspect or calcification Recommendations 1. TTE, TSH, lipids, A1C, Check DDIMER. Will perform CAT chest if + 2. ASA. Hold BP meds for now, may start if BP starts to trend up, discussed with RN. 3. Will benefit from statin. Dietitian consult, wt loss. 4. RN to liban the erythema, antibiotics per PCP 5. Continue home CPAP 6. Ischemic workup as an outpt. KESHIA LAUREANO DIGITAL PRODUCT SPECIALIST Mar 18, 2019 09:21
--- NOTE | 2019-03-18 09:26 | PDOC ---
Provider Note Provider Note [id number] LELAND GONZÁLES MD Mar 18, 2019 09:26
--- NOTE | 2019-03-18 09:42 | HP ---
ADMIT DATE: 03/17/2019 CHIEF COMPLAINT: Chest pain and weakness. HISTORY OF PRESENT ILLNESS: A 48-year-old white male, diabetic, with morbid obesity and nonalcoholic fatty liver disease, came in with some vague atypical chest pain and pressure-like symptoms of fatigue and weakness. He also was felt to have some swelling in his right lower extremity and low-grade fever and ER put him on Zosyn pending results of blood cultures. He has had no further chest pain overnight. PAST HISTORY: Been on Basaglar for 3 months. He also takes metformin and glimepiride. He is also on losartan/HCT for hypertension. ALLERGIES: HE HAS ALLERGIES TO IBUPROFEN AND NAPROXEN. No previous cardiovascular history. SOCIAL HISTORY: Nonsmoker, nondrinker, , not physically active. He is employed. FAMILY HISTORY: Unremarkable. REVIEW OF SYSTEMS: No other known problems. OBJECTIVE: ENT: All within normal limits. NECK: No masses, nodes or bruits. LUNGS: Clear. CARDIOVASCULAR: Regular rate. No murmur. ABDOMEN: Obese, benign, nontender. EXTREMITIES: Right leg mildly swollen with some scabbed areas, mild redness. Pulses are good. NEUROLOGIC: Physiologic. LABORATORY STUDIES: Unremarkable. ASSESSMENT: Atypical chest pain with high risk factors in a poorly controlled diabetic, morbid obesity and hypertension. Right leg may have cellulitis, though deep venous thrombosis must be considered as well. PLAN: As ordered. LELAND GONZÁLES MD DR: IVIS/agnieszka JOB#: [id number] / [id number]
[2019-03-18] MEDS: LOSARTAN POTASSIUM 50 MG TABLET. PO SCH (10:00)
[2019-03-18] MEDS ORDERED: hydroCHLOROthiazide 25 MG TABLET PO SCH (10:00)
--- NOTE | 2019-03-18 10:14 | RAD ---
Right lower extremity venous doppler ultrasound History: Edema, right calf swelling Comparison: November 26, 2015 Findings: Multiple grayscale, color, and duplex spectral analysis sonographic images were acquired of the right lower extremity veins to evaluate for the presence of DVT. There is normal phasicity. Normal compression, color-flow, and augmentation is demonstrated from the right common femoral to the popliteal veins. There is normal color flow of the proximal greater saphenous and profunda femoris veins. There is normal color flow of segments of the calf veins. There is some edema of the soft tissues. Impression: 1. There is no evidence of deep venous thrombosis from the right common femoral to the popliteal veins. Electronically signed by: Kentrell Dillard MD (03/18/2019 10:11 AM) [id number]
[2019-03-18 11:00] VITALS: BP 96/49
[2019-03-18] MEDS ORDERED: IV NORMAL SALINE 1000ML BAG 1,000 ML IV ONE (11:00)
--- NOTE | 2019-03-18 11:33 | CARD ---
MR#: [id number] Date of Study: 03/18/2019 Ordering Physician: KESHIA LAUREANO, Referring Physician: KESHIA LAUREANO Tech: Jeannine Blevins RDCS APPROVED REPORT EXAM: Two-dimensional and M-mode echocardiogram with Doppler and color Doppler. Other Information Quality : Fair INDICATION Chest Pain Morbid Obesity 2D DIMENSIONS RVDd2.9 (2.9-3.5cm)Left Atrium(2D)3.8 (1.6-4.0cm) IVSd1.3 (0.7-1.1cm)Aortic Root(2D)3.4 (2.0-3.7cm) LVDd5.0 (3.9-5.9cm)LVOT Diameter2.3 (1.8-2.4cm) PWd1.2 (0.7-1.1cm)LVDs4.5 (2.5-4.0cm) FS (%) 4.0 %SV10.3 ml LVEF(%)55.0 (>50%) Aortic Valve AoV Peak Isacc.182.8cm/sAoV VTI29.0cm AO Peak GR.13.4mmHgLVOT Peak Isacc.139.2cm/s AO Mean GR.8mmHgAVA (VMAX)3.22cm2 LEXUS (VTI)3.70cm2 Mitral Valve MV E Fkmdacst288.4cm/sMV DECEL [id number] MV A Ffzxiprf823.6cm/sE/A Ratio1.2 Pulmonary Vein S1 Vuyttrsa40.5cm/sD2 Jueeqhba33.4cm/s LEFT VENTRICLE The left ventricle is normal size. There is normal left ventricular wall thickness. The left ventricu lar systolic function is normal and the ejection fraction is within normal range. The Ejection Fracti on is 60-65%. There is normal LV segmental wall motion. Transmitral Doppler flow pattern is Grade I-a bnormal relaxation pattern. RIGHT VENTRICLE The right ventricle is normal size. The right ventricular systolic function is normal. ATRIA The left atrium size is normal. The right atrium size is normal. The interatrial septum is intact wit h no evidence for an atrial septal defect or patent foramen ovale as noted on 2-D or Doppler imaging. AORTIC VALVE The aortic valve is calcified but opens well. Doppler and Color Flow revealed no significant aortic r egurgitation. There is no significant aortic valvular stenosis. MITRAL VALVE The mitral valve is normal in structure and function. There is no evidence of mitral valve prolapse. There is no mitral valve stenosis. Doppler and Color Flow revealed no mitral valve regurgitation note d. TRICUSPID VALVE The tricuspid valve is normal in structure and function. Doppler and Color Flow revealed no tricuspid valve regurgitation noted. There is no tricuspid valve stenosis. PULMONIC VALVE The pulmonic valve is not well visualized. Doppler and Color Flow revealed no pulmonic valvular regur gitation. There is no pulmonic valvular stenosis. GREAT VESSELS The aortic root is normal in size. The ascending aorta is not well seen. The IVC is normal in size an d collapses >50% with inspiration. PERICARDIAL EFFUSION There is no evidence of significant pericardial effusion. Critical Notification Critical Value: No <Conclusion> The left ventricle is normal size. The left ventricular systolic function is normal and the ejection fraction is within normal range. The Ejection Fraction is 60-65%. There is no significant aortic valvular stenosis. Doppler and Color Flow revealed no significant aortic regurgitation. Doppler and Color Flow revealed no mitral valve regurgitation noted. Doppler and Color Flow revealed no tricuspid valve regurgitation noted. There is no evidence of significant pericardial effusion. Signed by : Valentín Guerin MD Electronically Approved : 03/18/2019 11:32:35
[2019-03-18] MEDS ORDERED: IOHEXOL 350 MG/ML 100 ML VIAL. IV ONE (12:00)
[2019-03-18] MEDS: GLIMEPIRIDE 2 MG TABLET. PO SCH (13:11)
[2019-03-18] MEDS: ASPIRIN CHEWABLE 81 MG TABLET. PO SCH (13:11)
[2019-03-18] MEDS: PIPERACILLIN/TAZOBACTAM 3.375 GM in IV NORMAL SALINE 50ML 50 ML IV SCH ×2 (13:22→18:43)
--- NOTE | 2019-03-18 13:27 | NUR ---
SS following for discharge planning. SS reviewed pt chart. Pt is from home with spouse and is currently requiring oxygen. No discharge needs noted at this time. SS will continue to follow for discharge planning.
--- NOTE | 2019-03-18 14:55 | RAD ---
Examination: CT ANGIOGRAPHY CHEST History: Chest pain and dyspnea Comparison/Correlation: 03/17/2019 portable chest x-ray exam Findings: Axial images of chest were obtained following IV contrast report arteriography protocol. MIP images were provided. Evaluation of the distal pulmonary arterial vasculature is limited due to suboptimal opacification which appears to be due to transient interruption of contrast. Sagittal pulmonary arterial vasculature is unremarkable. Thoracic aorta is grossly unremarkable although not optimally opacified for arteriographic assessment. No enlarged thoracic lymph nodes. Few nonspecific low-attenuation regions involving the lung quintero are small in size. No pleural or pericardial effusion. No pneumothorax. Tracheal bronchial tree is unremarkable. Minimal lingular atelectasis or scarring at the anterior basilar aspect is present. Bony structures are unremarkable. Impression: No central pulmonary arterial vasculature thromboembolic disease. This examination is not adequate for evaluation of distal pulmonary arterial vasculature due to limited pulmonary arterial opacification. No acute infiltrates. PQRS Compliance Statement: One or more of the following individualized dose reduction techniques were utilized for this examination: 1. Automated exposure control 2. Adjustment of the mA and/or kV according to patient size 3. Use of iterative reconstruction technique Electronically signed by: Isaias Hutchison MD (03/18/2019 2:52 PM) [facility]
[2019-03-18 15:00] VITALS: BP 125/63
[2019-03-18] MEDS ORDERED: metFORMIN 500 MG TABLET PO SCH (17:00)
[2019-03-18] MEDS ORDERED: CONTRAST GIVEN. MC PRN (17:15)
[2019-03-18] MEDS: POTASSIUM CHLORIDE 20 MEQ TABLET.ER. PO SCH (18:43)
[2019-03-18 19:18] VITALS: BP 116/49
[2019-03-18] MEDS ORDERED: INSULIN GLARGINE SYRINGE. SQ SCH (21:00)
[2019-03-18] MEDS: ACETAMINOPHEN 325 MG TABLET. PO PRN (21:45)
[2019-03-18 22:28] VITALS: BP 104/52
[2019-03-19] MEDS: PIPERACILLIN/TAZOBACTAM 3.375 GM in IV NORMAL SALINE 50ML 50 ML IV SCH ×5 (00:30→23:56)
[2019-03-19 01:08] LABS: HEMOGLOBIN A1C 8.9 % (4.8-5.6)
[2019-03-19 03:14] VITALS: BP 122/56
[2019-03-19 07:00] VITALS: BP 124/67
[2019-03-19] MEDS: ASPIRIN CHEWABLE 81 MG TABLET. PO SCH (08:20)
[2019-03-19] MEDS: POTASSIUM CHLORIDE 20 MEQ TABLET.ER. PO SCH ×2 (08:20→09:00)
[2019-03-19] MEDS: ACETAMINOPHEN 325 MG TABLET. PO PRN ×2 (08:21→20:35)
[2019-03-19] MEDS: GLIMEPIRIDE 2 MG TABLET. PO SCH (08:21)
--- NOTE | 2019-03-19 08:53 | PDOC ---
Provider Note Provider Note vss, still some temp- no more chest pain bur R leg pain and redness same despite zosyn- ct neg , no wound cult done in er- elaine add vanco for mrsa cover, add more lantus, move to floor LELAND GONZÁLES MD Mar 19, 2019 08:53
[2019-03-19] MEDS ORDERED: INSULIN GLARGINE SYRINGE. SQ ONE (09:00)
[2019-03-19] MEDS: hydroCHLOROthiazide 25 MG TABLET PO SCH (09:00)
[2019-03-19] MEDS: LOSARTAN POTASSIUM 50 MG TABLET. PO SCH (09:00)
[2019-03-19] MEDS: VANCOMYCIN 1.25 GM in IV NORMAL SALINE 250ML 250 ML IV SCH ×2 (10:36→20:36)
[2019-03-19 11:00] VITALS: BP 107/55
[2019-03-19 14:40] VITALS: BP 130/56
--- NOTE | 2019-03-19 15:00 | NUR ---
pt arrived to unit at 1430 in stable condition. pt is alert and oriented and on RA. pt is not having any pain at this time. pt is requesting to take a shower. assessment completed and pt is set up for shower. call light is within reach. received report from NAKUL Richards on 2S. will continue to monitor.
--- NOTE | 2019-03-19 15:04 | PDOC ---
PROGRESS NOTES Subjective Subjective Patient seen and examined The patient is feeling better today. Objective Objective Vital Signs Date Time Temp Pulse Resp B/P (MAP) Pulse Ox O2 Delivery O2 Flow Rate FiO2 03/19/19 14:45 Room Air 03/19/19 11:00 98.8 65 18 107/55 (72) 96 2.0 98.8 Intake and Output 03/19/19 07:00 Intake Total 800 ml Output Total 475 ml Balance 325 ml Intake Oral 800 ml Output Urine Total 475 ml # Voids 12 Physical Exam Abdomen: Normal bowel sounds Heart: Regular rate General: No acute distress Lungs: Clear to auscultation Assessment Assessment Problems Medical Problems: (1) HTN (hypertension) Status: Chronic (2) Morbid obesity Status: Chronic (3) RANJIT (obstructive sleep apnea) Status: Chronic (4) Poorly controlled diabetes mellitus Status: Chronic Chest pain. Resolved. No acute EKG changes. Normal troponin. Echocardiogram with normal LV function. Continue present treatments and monitoring at this time. Lower extremity cellulitis. Antibiotics and workup as per the primary service. No evidence of DVT. Hypertension. Controlled on present medications. Hyperlipidemia Morbid obesity. Obstructive sleep apnea on CPAP. Reported history of coronary artery disease. Heart catheterization in 2008 required no intervention. Normal LV systolic function on echo. Continue medical treatment. Possible outpatient ischemia workup. Comment Review of Relevant I have reviewed the following items liban (where applicable) has been applied. Labs Laboratory Tests Test 03/17/19 17:50 03/17/19 19:05 03/17/19 20:50 03/17/19 20:55 White Blood Count 11.9 x10^3/uL (4.0-11.0) Red Blood Count 4.64 x10^6/uL (4.30-5.70) Hemoglobin 13.8 g/dL (13.0-17.5) Hematocrit 39.8 % (39.0-53.0) Mean Corpuscular Volume 86 fL (79-100) Mean Corpuscular Hemoglobin 30 pg (25-35) Mean Corpuscular Hemoglobin Concent 35 g/dL (31-37) Red Cell Distribution Width 13.9 % (11.5-14.5) Platelet Count 127 x10^3/uL (140-400) Neutrophils (%) (Auto) 89 % (31-73) Lymphocytes (%) (Auto) 6 % (24-48) Monocytes (%) (Auto) 4 % (0-9) Eosinophils (%) (Auto) 1 % (0-3) Basophils (%) (Auto) 1 % (0-3) Neutrophils # (Auto) 10.6 x10^3/uL (1.8-7.7) Lymphocytes # (Auto) 0.7 x10^3/uL (1.0-4.8) Monocytes # (Auto) 0.5 x10^3/uL (0.0-1.1) Eosinophils # (Auto) 0.1 x10^3/uL (0.0-0.7) Basophils # (Auto) 0.1 x10^3/uL (0.0-0.2) Segmented Neutrophils % 67 % (35-66) Band Neutrophils % 20 % (0-9) Lymphocytes % 9 % (24-48) Monocytes % 3 % (0-10) Eosinophils % 1 % (0-5) Platelet Estimate Decreased (ADEQUATE) Polychromasia Slight Prothrombin Time 13.8 SEC (11.7-14.0) Prothromb Time International Ratio 1.1 (0.8-1.1) Activated Partial Thromboplast Time 29 SEC (24-38) Sodium Level 139 mmol/L (136-145) Potassium Level 3.8 mmol/L (3.5-5.1) Chloride Level 103 mmol/L (98-107) Carbon Dioxide Level 24 mmol/L (21-32) Anion Gap 12 (6-14) Blood Urea Nitrogen 21 mg/dL (8-26) Creatinine 1.3 mg/dL (0.7-1.3) Estimated GFR (Cockcroft-Gault) 58.4 BUN/Creatinine Ratio 16 (6-20) Glucose Level 163 mg/dL (70-99) Calcium Level 9.3 mg/dL (8.5-10.1) Magnesium Level 1.6 mg/dL (1.8-2.4) Total Bilirubin 0.7 mg/dL (0.2-1.0) Aspartate Amino Transf (AST/SGOT) 46 U/L (15-37) Alanine Aminotransferase (ALT/SGPT) 86 U/L (16-63) Alkaline Phosphatase 134 U/L (46-116) Creatine Kinase 166 U/L (39-308) Creatine Kinase MB (Mass) 1.2 ng/mL (0.0-3.6) Creatine Kinase MB Relative Index 0.7 % (0-4) Troponin I Quantitative < 0.017 ng/mL (0.000-0.055) < 0.017 ng/mL (0.000-0.055) OH-Mdq-A-Type Natriuretic Peptide 51 pg/mL (0-124) Total Protein 8.2 g/dL (6.4-8.2) Albumin 3.7 g/dL (3.4-5.0) Albumin/Globulin Ratio 0.8 (1.0-1.7) Thyroid Stimulating Hormone (TSH) 1.310 uIU/mL (0.358-3.74) Ethyl Alcohol Level < 10 mg/dL (0-10) Urine Collection Type Unknown Urine Color Yellow Urine Clarity Clear Urine pH 5.5 Urine Specific [place] 1.025 Urine Protein Negative mg/dL (NEG-TRACE) Urine Glucose (UA) 250 mg/dL (NEG) Urine Ketones (Stick) Negative mg/dL (NEG) Urine Blood Negative (NEG) Urine Nitrite Negative (NEG) Urine Bilirubin Negative (NEG) Urine Urobilinogen Dipstick 0.2 mg/dL (0.2 mg/dL) Urine Leukocyte Esterase Negative (NEG) Urine RBC 0 /HPF (0-2) Urine WBC Occ /HPF (0-4) Urine Squamous Epithelial Cells Occ /LPF Urine Bacteria 0 /HPF (0-FEW) Urine Opiates Screen Neg (NEG) Urine Methadone Screen Neg (NEG) Urine Barbiturates Neg (NEG) Urine Phencyclidine Screen Neg (NEG) Urine Amphetamine/Methamphetamine Neg (NEG) Urine Benzodiazepines Screen Neg (NEG) Urine Cocaine Screen Neg (NEG) Urine Cannabinoids Screen Neg (NEG) Urine Ethyl Alcohol Neg (NEG) Lactic Acid Level 1.4 mmol/L (0.4-2.0) Test 03/17/19 23:50 03/18/19 00:35 03/18/19 07:25 03/18/19 11:42 Troponin I Quantitative < 0.017 ng/mL (0.000-0.055) Glucose (Fingerstick) 241 mg/dL (70-99) 200 mg/dL (70-99) White Blood Count 10.8 x10^3/uL (4.0-11.0) Red Blood Count 4.56 x10^6/uL (4.30-5.70) Hemoglobin 13.5 g/dL (13.0-17.5) Hematocrit 39.3 % (39.0-53.0) Mean Corpuscular Volume 86 fL (79-100) Mean Corpuscular Hemoglobin 30 pg (25-35) Mean Corpuscular Hemoglobin Concent 35 g/dL (31-37) Red Cell Distribution Width 13.7 % (11.5-14.5) Platelet Count 111 x10^3/uL (140-400) Neutrophils (%) (Auto) 90 % (31-73) Lymphocytes (%) (Auto) 5 % (24-48) Monocytes (%) (Auto) 4 % (0-9) Eosinophils (%) (Auto) 0 % (0-3) Basophils (%) (Auto) 0 % (0-3) Neutrophils # (Auto) 9.8 x10^3/uL (1.8-7.7) Lymphocytes # (Auto) 0.6 x10^3/uL (1.0-4.8) Monocytes # (Auto) 0.4 x10^3/uL (0.0-1.1) Eosinophils # (Auto) 0.0 x10^3/uL (0.0-0.7) Basophils # (Auto) 0.0 x10^3/uL (0.0-0.2) D-Dimer (Nelsy) 0.56 ug/mlFEU (0.00-0.50) Sodium Level 139 mmol/L (136-145) Potassium Level 3.4 mmol/L (3.5-5.1) Chloride Level 103 mmol/L (98-107) Carbon Dioxide Level 26 mmol/L (21-32) Anion Gap 10 (6-14) Blood Urea Nitrogen 19 mg/dL (8-26) Creatinine 1.2 mg/dL (0.7-1.3) Estimated GFR (Cockcroft-Gault) 64.1 BUN/Creatinine Ratio 16 (6-20) Glucose Level 209 mg/dL (70-99) Hemoglobin A1c 8.9 % (4.8-5.6) Calcium Level 9.1 mg/dL (8.5-10.1) Magnesium Level 1.9 mg/dL (1.8-2.4) Total Bilirubin 1.1 mg/dL (0.2-1.0) Aspartate Amino Transf (AST/SGOT) 40 U/L (15-37) Alanine Aminotransferase (ALT/SGPT) 79 U/L (16-63) Alkaline Phosphatase 107 U/L (46-116) Total Protein 8.0 g/dL (6.4-8.2) Albumin 3.3 g/dL (3.4-5.0) Albumin/Globulin Ratio 0.7 (1.0-1.7) Triglycerides Level 126 mg/dL (0-150) Cholesterol Level 155 mg/dL (0-200) LDL Cholesterol, Calculated 83 mg/dL (0-100) VLDL Cholesterol, Calculated 25 mg/dL (0-40) Non-HDL Cholesterol Calculated 108 mg/dL (0-129) HDL Cholesterol 47 mg/dL (40-60) Cholesterol/HDL Ratio 3.3 Test 03/18/19 17:35 03/18/19 20:34 03/19/19 08:31 03/19/19 12:27 Glucose (Fingerstick) 149 mg/dL (70-99) 183 mg/dL (70-99) 159 mg/dL (70-99) 218 mg/dL (70-99) Laboratory Tests Test 03/18/19 17:35 03/18/19 20:34 03/19/19 08:31 03/19/19 12:27 Glucose (Fingerstick) 149 mg/dL (70-99) 183 mg/dL (70-99) 159 mg/dL (70-99) 218 mg/dL (70-99) Microbiology 03/17/19 Blood Culture - Preliminary, Resulted NO GROWTH AFTER 1 DAY Medications Current Medications Nitroglycerin (Nitrostat) 0.4 mg PRN Q5MIN PRN SL CP RATING > 1/10; Start 03/17/19 at 17:45; Stop 03/18/19 at 09:26; Status DC Morphine Sulfate (Morphine Sulfate) 4 mg PRN Q15MIN PRN IV/SQ PAIN GREATER THAN 3/10; Start 03/17/19 at 17:45; Stop 03/18/19 at 11:38; Status DC Sodium Chloride 1,000 ml @ 2,340 mls/hr Q26M IV Last administered on 03/18/19at 13:30; Start 03/17/19 at 20:16; Stop 03/17/19 at 21:16; Status DC Piperacillin Sod/ Tazobactam Sod 4.5 gm/Sodium Chloride 100 ml @ 200 mls/hr 1X ONCE IV Last administered on 03/17/19at 22:56; Start 03/17/19 at 20:30; Stop 03/17/19 at 20:59; Status DC Ondansetron HCl (Zofran) 4 mg PRN Q8HRS PRN IV NAUSEA/VOMITING; Start 03/17/19 at 20:30; Stop 03/18/19 at 20:29; Status DC Morphine Sulfate (Morphine Sulfate) 4 mg PRN Q2HR PRN IV PAIN Last administered on 03/18/19at 02:15; Start 03/17/19 at 20:30; Stop 03/18/19 at 20:29; Status DC Acetaminophen (Tylenol) 650 mg PRN Q4HRS PRN PO FEVER Last administered on 03/18/19at 08:45; Start 03/17/19 at 20:30; Stop 03/18/19 at 20:29; Status DC Nitroglycerin (Nitrostat) 0.4 mg PRN Q5MIN PRN SL CHEST PAIN; Start 03/17/19 at 20:30; Stop 03/18/19 at 20:29; Status DC Magnesium Sulfate/ Dextrose 100 ml @ 100 mls/hr 1X ONCE IV Last administered on 03/17/19at 22:56; Start 03/17/19 at 22:30; Stop 03/17/19 at 23:29; Status DC Aspirin (Children'S Aspirin) 81 mg DAILY PO Last administered on 03/19/19at 08:29; Start 03/18/19 at 10:00 Glimepiride (Amaryl) 4 mg DAILY08 PO Last administered on 03/19/19 08:29; Start 03/18/19 at 11:00 Insulin Glargine (Lantus Syringe) 35 unit QHS SQ Last administered on 03/18/19at 21:49; Start 03/18/19 at 21:00; Stop 03/19/19 at 08:52; Status DC Losartan Potassium (Cozaar) 100 mg DAILY PO ; Start 03/18/19 at 10:00 Metformin HCl (Glucophage) 1,000 mg BIDWMEALS PO ; Start 03/18/19 at 17:00; Status Cancel Potassium Chloride (Klor-Con) 20 meq BIDWMEALS PO Last administered on 03/19/19at 08:29; Start 03/18/19 at 17:00; Stop 03/19/19 at 08:52; Status DC Hydrochlorothiazide (Hydrodiuril) 25 mg DAILY PO ; Start 03/18/19 at 10:00; Stop 03/19/19 at 08:52; Status DC Sodium Chloride 1,000 ml @ 100 mls/hr 1X ONCE IV Last administered on 03/18at 19:17; Start 03/18/19 at 11:00; Stop 03/18/19 at 20:59; Status DC Iohexol (Omnipaque 350 Mg/ml) 100 ml 1X ONCE IV Last administered on 03/18/19at 12:20; Start 03/18/19 at 12:00; Stop 03/18/19 at 12:01; Status DC Piperacillin Sod/ Tazobactam Sod 3.375 gm/Sodium Chloride 50 ml @ 100 mls/hr Q6HRS IV Last administered on 03/19/19at 13:06; Start 03/18/19 at 13:00 Metformin HCl (Glucophage) 1,000 mg BIDWMEALS PO ; Start 03/20/19 at 17:00 Info (CONTRAST GIVEN -- Rx MONITORING) 1 each PRN DAILY PRN MC SEE COMMENTS; Start 03/18/19 at 17:15; Stop 03/20/19 at 17:14 Acetaminophen (Tylenol) 650 mg PRN QID PRN PO FEVER Last administered on 03/19/19at 08:29; Start 03/18/19 at 21:30 Hydrochlorothiazide (Hydrodiuril) 12.5 mg DAILY PO ; Start 03/19/19 at 09:00 Insulin Glargine (Lantus Syringe) 50 unit QHS SQ ; Start 03/19/19 at 21:00 Potassium Chloride (Klor-Con) 20 meq DAILY08 PO ; Start 03/19/19 at 09:00 Vancomycin HCl 1.25 gm/Sodium Chloride 250 ml @ 167 mls/hr Q12H IV Last administered on 03/19/19at 10:44; Start 03/19/19 at 09:00 Insulin Glargine (Lantus Syringe) 10 unit 1X ONCE SQ Last administered on 03/19/19at 10:55; Start 03/19/19 at 09:00; Stop 03/19/19 at 09:02; Status DC Active Scripts Active Reported Losartan-Hctz 100-25 Mg Tab (Losartan/Hydrochlorothiazide) 1 Each Tablet 1 Tab PO DAILY Glimepiride 4 Mg Tablet 1 Tab PO DAILY Levemir (Insulin Detemir) 100 Unit/1 Ml Vial 35 Unit SQ QHS Metformin Hcl 1,000 Mg Tablet 1,000 Mg PO BIDWMEALS Fish Oil 500 Mg Softgel ([place]-3/Dha/Epa/Fish Oil) 1 Each Capsule 1 Each PO BIDBFRMEAL Stool Softener (Docusate Sodium) 100 Mg Tablet 100 Mg PO QHS Potassium Chloride 20 Meq Tablet.er 20 Meq PO BID Vitamin D (Cholecalciferol (Vitamin D3)) 1,000 Unit Capsule 1 Cap PO DAILY PRN Children's Aspirin (Aspirin) 81 Mg Tab.chew 81 Mg PO QHS PRN Furosemide 20 Mg Tablet 1 Tab PO DAILY Vitals/I & O Vital Sign - Last 24 Hours 03/18/19 03/18/19 03/18/19 03/19/19 19:18 20:00 22:28 03:14 Temp 102.0 101.6 98.7 102.0 101.6 98.7 Pulse 82 78 67 Resp 14 18 16 B/P (MAP) 116/49 (71) 104/52 (69) 122/56 (78) Pulse Ox 99 98 100 O2 Delivery Nasal Cannula Nasal Cannula Nasal Cannula Nasal Cannula O2 Flow Rate 3.0 2.0 3.0 3.0 03/19/19 03/19/19 03/19/19 03/19/19 07:00 08:00 11:00 14:45 Temp 99.2 98.8 99.2 98.8 Pulse 74 65 Resp 18 18 B/P (MAP) 124/67 (86) 107/55 (72) Pulse Ox 99 96 O2 Delivery Nasal Cannula Nasal Cannula Nasal Cannula Room Air O2 Flow Rate 2.0 3.0 2.0 Intake and Output 03/18/19 03/18/19 03/19/19 15:00 23:00 07:00 Intake Total 800 ml Output Total 475 ml Balance -475 ml 800 ml FILIPE ENGLISH MD Mar 19, 2019 15:04
[2019-03-19 19:00] VITALS: BP 112/59
[2019-03-19 23:00] VITALS: BP 115/72
[2019-03-19] MEDS: INSULIN GLARGINE SYRINGE. SQ SCH (23:05)
[2019-03-20 03:00] VITALS: BP 123/73
[2019-03-20] MEDS: ACETAMINOPHEN 325 MG TABLET. PO PRN ×3 (04:49→21:19)
[2019-03-20] MEDS: PIPERACILLIN/TAZOBACTAM 3.375 GM in IV NORMAL SALINE 50ML 50 ML IV SCH ×3 (06:12→17:39)
[2019-03-20 07:00] VITALS: BP 99/52
[2019-03-20] MEDS ORDERED: VANCOMYCIN PER PHARMACY MC PRN (08:30)
[2019-03-20] MEDS: LOSARTAN POTASSIUM 50 MG TABLET. PO SCH (09:00)
[2019-03-20] MEDS: hydroCHLOROthiazide 25 MG TABLET PO SCH (09:00)
[2019-03-20] MEDS: GLIMEPIRIDE 2 MG TABLET. PO SCH (09:10)
[2019-03-20] MEDS: ASPIRIN CHEWABLE 81 MG TABLET. PO SCH (09:11)
[2019-03-20] MEDS: POTASSIUM CHLORIDE 20 MEQ TABLET.ER. PO SCH (09:11)
[2019-03-20 09:13] LABS: CREATININE 1.1 mg/dL (0.7-1.3); GFR 70.9; VANC TR 5.7 mcg/mL (10.0-20.0)
--- NOTE | 2019-03-20 09:46 | NUR ---
Pharmacy Vancomycin Dosing Note S: Consulted to monitor and dose vancomycin started 03/19/19. O: LÓPEZ CABA is a 48 year old M with Cellulitis. Other Antibiotics: ZOSYN 3.375G IV Q6HRS LABS: Last BUN: 19 Last Creatinine: 1.1 Creatinine Clearance: > 100 mL/min Last WBC: 10.8 Last Procalcitonin: - Tmax (past 24 hours): 102 Microbiology: BLOOD CX (03/17): NGTD I/O: 800/475 Drug Levels: Last Trough level: 5.7 (75% steady state trough) on 03/20/19 at 0830 Last dose given 03/19/19 at 2030 Vancomycin Dosing: Dosing Weight: Actual Target Trough: 10-20 A: Patient was initiated on vancomycin 1250 mg IV q12hrs. A 75% steady state trough was 5.7 (est to be 7.5 at steady state). Patient's renal function is stable. Change to the following: P: 1. Change to Vancomycin 2000 mg IV q12h 2. Follow up level in 5-7 days if needed 3. Pharmacy will continue to monitor, follow and adjust therapy as needed. KARYN RON [facility] [place], 03/20/19 [id number]
--- NOTE | 2019-03-20 09:54 | PDOC ---
GENERAL General: vss and tmax still to 102 last 24 hours. does admit to fair amount of pain right lower leg. venous stasis changes bilaterally with cellulitis changes right lower leg and couple of open areas from trauma. chest clear, heart regular, abdomen benign, cultures negative to date. will ask for ID opinion with ongoing fevers 3 day into IV antibiotics. VITAL SIGNS/I&O Vital Signs/I&O: Vital Signs Date Time Temp Pulse Resp B/P (MAP) Pulse Ox O2 Delivery O2 Flow Rate FiO2 03/20/19 09:06 62 99/52 03/20/19 07:00 98.2 14 97 Room Air 98.2 03/19/19 11:00 2.0 I & O 03/19/19 03/19/19 03/20/19 14:59 22:59 06:59 Intake Total 250 ml 250 ml Balance 250 ml 250 ml ALLERGIES Allergies: Allergies Coded Allergies Type Severity Reaction Last Updated Verified ibuprofen Allergy Severe Swelling 11/26/15 Yes naproxen Allergy Severe Swelling 11/26/15 Yes MEDS Medications: Current Medications Medications (Trade) Dose Ordered Sig/Mariama Route PRN Reason Start Time Stop Time Status Last Admin Dose Admin Insulin Glargine (Lantus Syringe) 50 unit QHS SQ 03/19/19 21:00 03/19/19 23:05 Vancomycin HCl (Vanco Per Pharmacy) 1 each PRN DAILY PRN MC SEE COMMENTS 03/20/19 08:30 03/20/19 09:46 LAB Lab: Laboratory Tests Test 03/19/19 12:27 03/19/19 23:00 03/20/19 04:35 03/20/19 08:02 Glucose (Fingerstick) 218 mg/dL (70-99) H 213 mg/dL (70-99) H 189 mg/dL (70-99) H Platelet Count 106 x10^3/uL (140-400) L Test 03/20/19 08:40 Creatinine 1.1 mg/dL (0.7-1.3) Estimated GFR (Cockcroft-Gault) 70.9 Vancomycin Level Trough 5.7 mcg/mL (10.0-20.0) L Vancomycin Last Dose Date Unknown Vancomycin Last Dose Time Unknown Laboratory Tests 03/20/19 04:35 Laboratory Tests 03/20/19 08:40 YULIANA LOWRY MD Mar 20, 2019 09:54
[2019-03-20] MEDS ORDERED: VANCOMYCIN 2 GM in IV NORMAL SALINE 500ML BAG 500 ML IV SCH (10:00)
[2019-03-20 11:00] VITALS: BP 123/57
[2019-03-20] MEDS: MICAFUNGIN 100 MG in IV DEXTROSE 5% 100ML 100 ML IV SCH (12:45)
--- NOTE | 2019-03-20 12:48 | TS ---
DATE OF TRANSFER: 03/20/2019 REFERRING PHYSICIAN: Dr. Kentrell Tello. REASON FOR CONSULTATION: Fever with cellulitis. HISTORY OF PRESENT ILLNESS: A 48-year-old male with history of diabetes mellitus, obesity, hypertension, hyperlipidemia, presented to the ER on 03/17/2019 with chest pain with achiness intermittently and also right arm pain. The patient had complaints of headache, low-grade fevers, subjective chills, nausea, vomiting, diaphoresis. ID was ruled out. The patient had white count of 11.9. High LFTs. Lactate of 1.4, glucose of 241. Hemoglobin A1c of 8.9. He was found to have bilateral lower extremity redness, swelling, more on the right side. Doppler of lower extremity was negative for DVT. He underwent a chest x-ray, which showed no acute abnormality. He underwent CTA of the chest, which showed no acute changes. No thromboembolic disease. He underwent ultrasound of the abdomen due to elevated LFTs, which showed mild hepatomegaly with fatty infiltration, otherwise negative. The patient was started on Zosyn yesterday. He was febrile at 102, so was started on vancomycin. This morning, he had a fever of 100.2, so ID consult has been requested for antibiotic management. Today, the patient states he feels a little better. Right lower extremity swelling, redness, pain is improving. He has dry cough. He has headache whenever he bumps a fever. Denies any vision disturbances, blurred vision, oral sores, difficulty swallowing, nausea, vomiting, diarrhea, abdominal pain, symptoms. The patient has a cold sore on the lip, which he says has come up after he started having fevers here. Denies any dizziness or neurologic weakness. He has chronic venous stasis in both the lower extremities with current swelling, redness and pain, which he has had before he knew this was cellulitis coming in before admission. He denies any history of trauma, denies any outdoor activities. Denies any recreational activities. Denies any recent travel or procedure. Denies any recent immunization. Denies taking any new medication. PAST MEDICAL HISTORY: Morbid obesity, diabetes, hypertension with a history of chest pain, bilateral chronic venous stasis changes. ALLERGIES: IBUPROFEN, NAPROXEN. SOCIAL HISTORY: Denies smoking, ETOH, or illicit drug use. 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 , lives with and children, one dog, healthy. No outdoor activities as above. REVIEW OF SYSTEMS: Negative except for above in HPI. PHYSICAL EXAMINATION: VITAL SIGNS: Temperature 100.2, T-max 102, pulse 64, respirations 16, blood pressure 123/57, oxygen saturation 98% on room air. GENERAL: Alert and oriented x 3, pleasant male, ambulating in room without difficulty. Cooperative. HEENT: Normocephalic, atraumatic, anicteric. No thrush. Oral mucosa is moist. Oral sores over the upper lip. No oropharyngeal exudate. NECK: Supple, no JVD. LUNGS: Clear bilaterally. No wheezing. HEART: S1, S2. No gallops and no murmurs. ABDOMEN: Soft, obese. Bowel sounds present, nontender, nondistended, no rebound, no guarding. EXTREMITIES: Bilateral chronic venous stasis changes present in the right lower extremity. Swelling, erythema, tenderness blisters and a few superficial excoriation. No purulence noted. Tinea present. DERMATOLOGIC: Warm, dry. No generalized rash except for above. CENTRAL NERVOUS SYSTEM: Alert and oriented x 3, grossly nonfocal. PSYCHIATRIC: Cooperative, appropriate mood and affect. LABORATORY DATA: WBC 10.8, hemoglobin 13.5, hematocrit 39.3, platelets 111. Chemistry: Creatinine 1.1, potassium 3.4, chloride 103, bicarbonate 26. BUN 19, creatinine 1.2, glucose 209, AST 40, ALT 79, total bilirubin 1.1, albumin 3.3. Micro blood culture negative so far. IMAGIN. Chest CT as above. 2. Lower extremity ultrasound as above. 3. Ultrasound of the abdomen as above. 4. Chest x-ray as above. IMPRESSION: 1. Febrile illness, etiology likely right lower extremity cellulitis. 2. Right lower extremity cellulitis with underlying chronic venous stasis dermatitis. 3. Tinea. 4. Diabetes. 5. Chest pain. Workup negative so far. 6. Abnormal LFTs, improving. RECOMMENDATIONS: 1. Discontinue IV vancomycin as he is requiring 2 grams IV q.12 and to avoid nephrotoxicity. 2. Continue Zosyn. 3. Start Zyvox. 4. Start micafungin. 5. Elevate right lower extremity. 6. Monitor labs and cultures. 7. Continue supportive care. Thank you, Dr. Tello for consulting Infectious Disease to participate in this patient's care. If you have any questions, do not hesitate to contact us. YOLANDA KASPER MD DR: CHASE/agnieszka JOB#: [id number] / [id number] HUAN
[2019-03-20] MEDS: LINEZOLID 600 MG TABLET PO SCH ×2 (13:49→21:11)
[2019-03-20 15:00] VITALS: BP 127/63
[2019-03-20] MEDS: metFORMIN 500 MG TABLET PO SCH (17:04)
[2019-03-20 19:00] VITALS: BP 116/68
[2019-03-20] MEDS: LACTOBACILLUS RHAMNOSUS GG 1 CAPSULE. PO SCH (21:11)
[2019-03-20] MEDS: INSULIN GLARGINE SYRINGE. SQ SCH (21:14)
[2019-03-20 23:00] VITALS: BP 114/66
[2019-03-21] MEDS: PIPERACILLIN/TAZOBACTAM 3.375 GM in IV NORMAL SALINE 50ML 50 ML IV SCH ×5 (00:10→23:53)
[2019-03-21 03:00] VITALS: BP 110/55
[2019-03-21] MEDS: ACETAMINOPHEN 325 MG TABLET. PO PRN ×3 (06:06→19:20)
[2019-03-21 07:00] VITALS: BP 114/61
[2019-03-21] MEDS: GLIMEPIRIDE 2 MG TABLET. PO SCH (08:13)
[2019-03-21] MEDS: metFORMIN 500 MG TABLET PO SCH ×2 (08:14→17:08)
[2019-03-21] MEDS: LACTOBACILLUS RHAMNOSUS GG 1 CAPSULE. PO SCH ×2 (08:15→21:38)
[2019-03-21] MEDS: LOSARTAN POTASSIUM 50 MG TABLET. PO SCH ×2 (08:15→12:45)
[2019-03-21] MEDS: ASPIRIN CHEWABLE 81 MG TABLET. PO SCH (08:15)
[2019-03-21] MEDS: POTASSIUM CHLORIDE 20 MEQ TABLET.ER. PO SCH (08:15)
[2019-03-21] MEDS: LINEZOLID 600 MG TABLET PO SCH ×2 (08:16→21:38)
[2019-03-21] MEDS: hydroCHLOROthiazide 25 MG TABLET PO SCH ×2 (08:16→12:45)
[2019-03-21 09:59] LABS: BASO % 1 % (0-3); EOS # 0.2 x10^3/uL (0.0-0.7); EOS % 3 % (0-3); HEMATOCRIT 36.5 % (39.0-53.0); HEMOGLOBIN 12.7 g/dL (13.0-17.5); LYMPH % 15 % (24-48); MEAN CORPUSCULAR HEMOGLOBIN 30 pg (25-35); MEAN CORPUSCULAR HGB CONC 35 g/dL (31-37); MEAN CORPUSCULAR VOLUME 86 fL (79-100); MONO # 0.4 x10^3/uL (0.0-1.1); MONO % 6 % (0-9); NEUT # 4.9 x10^3/uL (1.8-7.7); NEUT % 75 % (31-73); PLATELET COUNT 128 x10^3/uL (140-400); RED BLOOD COUNT 4.25 x10^6/uL (4.30-5.70); RED CELL DISTRIBUTION WIDTH 13.8 % (11.5-14.5); WHITE BLOOD COUNT 6.5 x10^3/uL (4.0-11.0)
[2019-03-21 10:19] LABS: ALBUMIN 2.5 g/dL (3.4-5.0); ALBUMIN/GLOBULIN RATIO 0.5 (1.0-1.7); CALCIUM 8.6 mg/dL (8.5-10.1); CREATININE 1.1 mg/dL (0.7-1.3); GFR 70.9; POTASSIUM 3.7 mmol/L (3.5-5.1); TOTAL BILIRUBIN 0.6 mg/dL (0.2-1.0); TOTAL PROTEIN 7.7 g/dL (6.4-8.2)
--- NOTE | 2019-03-21 10:51 | PDOC ---
Infectious Disease Note Subjective: Subjective Pt is doing better less pain and swelling in the rt leg fever pattern improving ROS: ROS Negative otherwise. Vital Signs: Vital Signs Vital Signs Date Time Temp Pulse Resp B/P (MAP) Pulse Ox O2 Delivery O2 Flow Rate FiO2 03/21/19 08:16 65 114/61 03/21/19 07:00 99.3 16 98 Room Air 99.3 Physical Exam: PHYSICAL EXAM GENERAL: Alert and oriented x 3, pleasant male, ambulating in room without difficulty. Cooperative. HEENT: Normocephalic, atraumatic, anicteric. No thrush. Oral mucosa is moist. Oral sores over the upper lip. No oropharyngeal exudate. NECK: Supple, no JVD. LUNGS: Clear bilaterally. No wheezing. HEART: S1, S2. No gallops and no murmurs. ABDOMEN: Soft, obese. Bowel sounds present, nontender, nondistended, no rebound, no guarding. EXTREMITIES: Bilateral chronic venous stasis changes present in the right lower extremity. Swelling, erythema, tenderness blisters and a few superficial excoriation. No purulence noted. Tinea present. DERMATOLOGIC: Warm, dry. No generalized rash except for above. CENTRAL NERVOUS SYSTEM: Alert and oriented x 3, grossly nonfocal. PSYCHIATRIC: Cooperative, appropriate mood and affect. Medications: Inpatient Meds: Current Medications Medications (Trade) Dose Ordered Sig/Mariama Start Time Stop Time Status Last Admin Dose Admin Acetaminophen (Tylenol) 650 mg PRN QID PRN 03/18/19 21:30 03/21/19 06:06 650 MG Aspirin (Children'S Aspirin) 81 mg DAILY 03/18/19 10:00 03/21/19 08:16 81 MG Glimepiride (Amaryl) 4 mg DAILY08 03/18/19 11:00 03/21/19 08:16 4 MG Hydrochlorothiazide (Hydrodiuril) 12.5 mg DAILY 03/19/19 09:00 Info (CONTRAST GIVEN -- Rx MONITORING) 1 each PRN DAILY PRN 03/18/19 17:15 03/20/19 17:14 DC Insulin Glargine (Lantus Syringe) 10 unit 1X ONCE 03/19/19 09:00 03/19/19 09:02 DC 03/19/19 10:55 10 UNIT Iohexol (Omnipaque 350 Mg/ml) 100 ml 1X ONCE 03/18/19 12:00 03/18/19 12:01 DC 03/18/19 12:20 100 ML Lactobacillus Rhamnosus (Culturelle) 1 cap BID 03/20/19 21:00 03/21/19 08:16 1 CAP Linezolid (Zyvox) 600 mg BID 03/20/19 12:00 03/21/19 08:16 600 MG Losartan Potassium (Cozaar) 100 mg DAILY 03/18/19 10:00 Magnesium Sulfate/ Dextrose 100 ml @ 100 mls/hr 1X ONCE 03/17/19 22:30 03/17/19 23:29 DC 03/17/19 22:56 100 MLS/HR Metformin HCl (Glucophage) 1,000 mg BIDWMEALS 03/20/19 17:00 03/21/19 08:16 1,000 MG Micafungin Sodium 100 mg/Dextrose 100 ml @ 100 mls/hr Q24H 03/20/19 12:00 03/20/19 12:45 100 MLS/HR Morphine Sulfate (Morphine Sulfate) 4 mg PRN Q2HR PRN 03/17/19 20:30 03/18/19 20:29 DC 03/18/19 02:15 4 MG Nitroglycerin (Nitrostat) 0.4 mg PRN Q5MIN PRN 03/17/19 20:30 03/18/19 20:29 DC Ondansetron HCl (Zofran) 4 mg PRN Q8HRS PRN 03/17/19 20:30 03/18/19 20:29 DC Piperacillin Sod/ Tazobactam Sod 3.375 gm/Sodium Chloride 50 ml @ 100 mls/hr Q6HRS 03/18/19 13:00 03/21/19 06:06 100 MLS/HR Piperacillin Sod/ Tazobactam Sod 4.5 gm/Sodium Chloride 100 ml @ 200 mls/hr 1X ONCE 03/17/19 20:30 03/17/19 20:59 DC 03/17/19 22:56 200 MLS/HR Potassium Chloride (Klor-Con) 20 meq DAILY08 03/19/19 09:00 03/21/19 08:16 20 MEQ Sodium Chloride 1,000 ml @ 100 mls/hr 1X ONCE 03/18/19 11:00 03/18/19 20:59 DC 03/18/19 19:17 100 MLS/HR Vancomycin HCl (Vanco Per Pharmacy) 1 each PRN DAILY PRN 03/20/19 08:30 03/20/19 11:43 DC 03/20/19 09:46 1 EACH Vancomycin HCl 1.25 gm/Sodium Chloride 250 ml @ 167 mls/hr Q12H 03/19/19 09:00 03/20/19 09:37 DC 03/19/19 20:36 167 MLS/HR Vancomycin HCl 2 gm/Sodium Chloride 500 ml @ 250 mls/hr Q12H 03/20/19 10:00 03/20/19 11:42 DC 03/20/19 09:53 250 MLS/HR Labs: Lab Laboratory Tests Test 03/20/19 11:48 03/20/19 16:41 03/20/19 20:55 03/21/19 07:41 Glucose (Fingerstick) 239 mg/dL (70-99) 224 mg/dL (70-99) 218 mg/dL (70-99) 145 mg/dL (70-99) Test 03/21/19 09:15 White Blood Count 6.5 x10^3/uL (4.0-11.0) Red Blood Count 4.25 x10^6/uL (4.30-5.70) Hemoglobin 12.7 g/dL (13.0-17.5) Hematocrit 36.5 % (39.0-53.0) Mean Corpuscular Volume 86 fL (79-100) Mean Corpuscular Hemoglobin 30 pg (25-35) Mean Corpuscular Hemoglobin Concent 35 g/dL (31-37) Red Cell Distribution Width 13.8 % (11.5-14.5) Platelet Count 128 x10^3/uL (140-400) Neutrophils (%) (Auto) 75 % (31-73) Lymphocytes (%) (Auto) 15 % (24-48) Monocytes (%) (Auto) 6 % (0-9) Eosinophils (%) (Auto) 3 % (0-3) Basophils (%) (Auto) 1 % (0-3) Neutrophils # (Auto) 4.9 x10^3/uL (1.8-7.7) Lymphocytes # (Auto) 1.0 x10^3/uL (1.0-4.8) Monocytes # (Auto) 0.4 x10^3/uL (0.0-1.1) Eosinophils # (Auto) 0.2 x10^3/uL (0.0-0.7) Basophils # (Auto) 0.0 x10^3/uL (0.0-0.2) Sodium Level 138 mmol/L (136-145) Potassium Level 3.7 mmol/L (3.5-5.1) Chloride Level 104 mmol/L (98-107) Carbon Dioxide Level 22 mmol/L (21-32) Anion Gap 12 (6-14) Blood Urea Nitrogen 14 mg/dL (8-26) Creatinine 1.1 mg/dL (0.7-1.3) Estimated GFR (Cockcroft-Gault) 70.9 BUN/Creatinine Ratio 13 (6-20) Glucose Level 247 mg/dL (70-99) Calcium Level 8.6 mg/dL (8.5-10.1) Total Bilirubin 0.6 mg/dL (0.2-1.0) Aspartate Amino Transf (AST/SGOT) 25 U/L (15-37) Alanine Aminotransferase (ALT/SGPT) 47 U/L (16-63) Alkaline Phosphatase 103 U/L (46-116) Total Protein 7.7 g/dL (6.4-8.2) Albumin 2.5 g/dL (3.4-5.0) Albumin/Globulin Ratio 0.5 (1.0-1.7) Objective: Assessment: IMP: 1. Febrile illness, etiology likely right lower extremity cellulitis.Improving slowly 2. Right lower extremity cellulitis with underlying chronic venous stasis dermatitis. 3. Tinea. 4. Diabetes. 5. Chest pain. Workup negative so far. 6. Abnormal LFTs, improving. Plan: Plan of Care Continue Zosyn/ Zyvox./micafungin. Elevate right lower extremity. Monitor labs and cultures. Continue supportive care. D/W YOLANDA VEE MD Mar 21, 2019 10:51
[2019-03-21 11:00] VITALS: BP 111/54
--- NOTE | 2019-03-21 11:05 | PDOC ---
GENERAL General: vss and afebrile last 24 hours. chest clear, heart regular, abdomen benign, right leg without drainage and less tender. sugars some increased. continue antibiotics with change in same seeming to affect temperature curve and wbc down to normal. VITAL SIGNS/I&O Vital Signs/I&O: Vital Signs Date Time Temp Pulse Resp B/P (MAP) Pulse Ox O2 Delivery O2 Flow Rate FiO2 03/21/19 08:16 65 114/61 03/21/19 07:00 99.3 16 98 Room Air 99.3 I & O 03/20/19 03/20/19 03/21/19 15:00 23:00 07:00 Intake Total 360 ml 350 ml Balance 360 ml 350 ml ALLERGIES Allergies: Allergies Coded Allergies Type Severity Reaction Last Updated Verified ibuprofen Allergy Severe Swelling 11/26/15 Yes naproxen Allergy Severe Swelling 11/26/15 Yes MEDS Medications: Current Medications Medications (Trade) Dose Ordered Sig/Mariama Route PRN Reason Start Time Stop Time Status Last Admin Dose Admin Metformin HCl (Glucophage) 1,000 mg BIDWMEALS PO 03/20/19 17:00 03/21/19 08:16 Lactobacillus Rhamnosus (Culturelle) 1 cap BID PO 03/20/19 21:00 03/21/19 08:16 Linezolid (Zyvox) 600 mg BID PO 03/20/19 12:00 03/21/19 08:16 Micafungin Sodium 100 mg/Dextrose 100 ml @ 100 mls/hr Q24H IV 03/20/19 12:00 03/20/19 12:45 LAB Lab: Laboratory Tests Test 03/20/19 11:48 03/20/19 16:41 03/20/19 20:55 03/21/19 07:41 Glucose (Fingerstick) 239 mg/dL (70-99) H 224 mg/dL (70-99) H 218 mg/dL (70-99) H 145 mg/dL (70-99) H Test 03/21/19 09:15 White Blood Count 6.5 x10^3/uL (4.0-11.0) Red Blood Count 4.25 x10^6/uL (4.30-5.70) L Hemoglobin 12.7 g/dL (13.0-17.5) L Hematocrit 36.5 % (39.0-53.0) L Mean Corpuscular Volume 86 fL (79-100) Mean Corpuscular Hemoglobin 30 pg (25-35) Mean Corpuscular Hemoglobin Concent 35 g/dL (31-37) Red Cell Distribution Width 13.8 % (11.5-14.5) Platelet Count 128 x10^3/uL (140-400) L Neutrophils (%) (Auto) 75 % (31-73) H Lymphocytes (%) (Auto) 15 % (24-48) L Monocytes (%) (Auto) 6 % (0-9) Eosinophils (%) (Auto) 3 % (0-3) Basophils (%) (Auto) 1 % (0-3) Neutrophils # (Auto) 4.9 x10^3/uL (1.8-7.7) Lymphocytes # (Auto) 1.0 x10^3/uL (1.0-4.8) Monocytes # (Auto) 0.4 x10^3/uL (0.0-1.1) Eosinophils # (Auto) 0.2 x10^3/uL (0.0-0.7) Basophils # (Auto) 0.0 x10^3/uL (0.0-0.2) Sodium Level 138 mmol/L (136-145) Potassium Level 3.7 mmol/L (3.5-5.1) Chloride Level 104 mmol/L (98-107) Carbon Dioxide Level 22 mmol/L (21-32) Anion Gap 12 (6-14) Blood Urea Nitrogen 14 mg/dL (8-26) Creatinine 1.1 mg/dL (0.7-1.3) Estimated GFR (Cockcroft-Gault) 70.9 BUN/Creatinine Ratio 13 (6-20) Glucose Level 247 mg/dL (70-99) H Calcium Level 8.6 mg/dL (8.5-10.1) Total Bilirubin 0.6 mg/dL (0.2-1.0) Aspartate Amino Transferase (AST) 25 U/L (15-37) Alanine Aminotransferase (ALT) 47 U/L (16-63) Alkaline Phosphatase 103 U/L (46-116) Total Protein 7.7 g/dL (6.4-8.2) Albumin 2.5 g/dL (3.4-5.0) L Albumin/Globulin Ratio 0.5 (1.0-1.7) L Laboratory Tests 03/21/19 09:15 Laboratory Tests 03/21/19 09:15 YULIANA LOWRY MD Mar 21, 2019 11:05
[2019-03-21] MEDS: MICAFUNGIN 100 MG in IV DEXTROSE 5% 100ML 100 ML IV SCH (13:52)
[2019-03-21 15:00] VITALS: BP 118/54
--- NOTE | 2019-03-21 16:58 | NUR ---
IV site left AC had bleeding,and leaking. Site dc'd 2 attempts to replace and unable to restart. Nursing fixer supervisor Nica notified and requested her to restart IV.
[2019-03-21 19:00] VITALS: BP 131/59
[2019-03-21] MEDS: INSULIN GLARGINE SYRINGE. SQ SCH (21:42)
[2019-03-21 23:00] VITALS: BP 120/60
[2019-03-22 03:00] VITALS: BP 112/48
[2019-03-22] MEDS: ACETAMINOPHEN 325 MG TABLET. PO PRN ×3 (03:08→23:16)
[2019-03-22] MEDS: PIPERACILLIN/TAZOBACTAM 3.375 GM in IV NORMAL SALINE 50ML 50 ML IV SCH ×3 (05:53→17:20)
[2019-03-22 07:00] VITALS: BP 133/70
--- NOTE | 2019-03-22 08:29 | PDOC ---
Provider Note Provider Note AFEB, BP LOWER SO WILL HOLD LOSARTAN- r LEG EDEMA MILDLY LESS , STILL RED- DAY 4 ZYVOX, CONT SAME, NEEDS TO BE IN HOSPITAL RE SLOW PROGRESS RE DM OBESITY- LEAVE INSULIN SAME RE GOOD GLUCOSE CONTROL LELAND GONZÁLES MD Mar 22, 2019 08:29
[2019-03-22] MEDS: hydroCHLOROthiazide 25 MG TABLET PO SCH (09:00)
[2019-03-22] MEDS: LACTOBACILLUS RHAMNOSUS GG 1 CAPSULE. PO SCH ×2 (10:13→21:27)
[2019-03-22] MEDS: LINEZOLID 600 MG TABLET PO SCH ×2 (10:13→21:27)
[2019-03-22] MEDS: POTASSIUM CHLORIDE 20 MEQ TABLET.ER. PO SCH (10:13)
[2019-03-22] MEDS: metFORMIN 500 MG TABLET PO SCH ×2 (10:13→17:19)
[2019-03-22] MEDS: ASPIRIN CHEWABLE 81 MG TABLET. PO SCH (10:13)
[2019-03-22] MEDS: GLIMEPIRIDE 2 MG TABLET. PO SCH (10:13)
[2019-03-22 11:00] VITALS: BP 124/57
--- NOTE | 2019-03-22 11:27 | CONS ---
DATE OF CONSULTATION: 03/20/2019 REFERRING PHYSICIAN: Dr. Kentrell Tello. REASON FOR CONSULTATION: Fever with cellulitis. HISTORY OF PRESENT ILLNESS: A 48-year-old male with history of diabetes mellitus, obesity, hypertension, hyperlipidemia, presented to the ER on 03/17/2019 with chest pain with achiness intermittently and also right arm pain. The patient had complaints of headache, low-grade fevers, subjective chills, nausea, vomiting, diaphoresis. FL was ruled out. The patient had white count of 11.9. High LFTs. Lactate of 1.4, glucose of 241. Hemoglobin A1c of 8.9. He was found to have bilateral lower extremity redness, swelling, more on the right side. Doppler of lower extremity was negative for DVT. He underwent a chest x-ray, which showed no acute abnormality. He underwent CTA of the chest, which showed no acute changes. No thromboembolic disease. He underwent ultrasound of the abdomen due to elevated LFTs, which showed mild hepatomegaly with fatty infiltration, otherwise negative. The patient was started on Zosyn yesterday. He was febrile at 102, so was started on vancomycin. This morning, he had a fever of 100.2, so ID consult has been requested for antibiotic management. Today, the patient states he feels a little better. Right lower extremity swelling, redness, pain is improving. He has dry cough. He has headache whenever he bumps a fever. Denies any vision disturbances, blurred vision, oral sores, difficulty swallowing, nausea, vomiting, diarrhea, abdominal pain, symptoms. The patient has a cold sore on the lip, which he says has come up after he started having fevers here. Denies any dizziness or neurologic weakness. He has chronic venous stasis in both the lower extremities with current swelling, redness and pain, which he has had before he knew this was cellulitis coming in before admission. He denies any history of trauma, denies any outdoor activities. Denies any recreational activities. Denies any recent travel or procedure. Denies any recent immunization. Denies taking any new medication. PAST MEDICAL HISTORY: Morbid obesity, diabetes, hypertension with a history of chest pain, bilateral chronic venous stasis changes. ALLERGIES: IBUPROFEN, NAPROXEN. SOCIAL HISTORY: Denies smoking, ETOH, or illicit drug use. 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 , lives with and children, one dog, healthy. No outdoor activities as above. REVIEW OF SYSTEMS: Negative except for above in HPI. PHYSICAL EXAMINATION: VITAL SIGNS: Temperature 100.2, T-max 102, pulse 64, respirations 16, blood pressure 123/57, oxygen saturation 98% on room air. GENERAL: Alert and oriented x 3, pleasant male, ambulating in room without difficulty. Cooperative. HEENT: Normocephalic, atraumatic, anicteric. No thrush. Oral mucosa is moist. Oral sores over the upper lip. No oropharyngeal exudate. NECK: Supple, no JVD. LUNGS: Clear bilaterally. No wheezing. HEART: S1, S2. No gallops and no murmurs. ABDOMEN: Soft, obese. Bowel sounds present, nontender, nondistended, no rebound, no guarding. EXTREMITIES: Bilateral chronic venous stasis changes present in the right lower extremity. Swelling, erythema, tenderness blisters and a few superficial excoriation. No purulence noted. Tinea present. DERMATOLOGIC: Warm, dry. No generalized rash except for above. CENTRAL NERVOUS SYSTEM: Alert and oriented x 3, grossly nonfocal. PSYCHIATRIC: Cooperative, appropriate mood and affect. LABORATORY DATA: WBC 10.8, hemoglobin 13.5, hematocrit 39.3, platelets 111. Chemistry: Creatinine 1.1, potassium 3.4, chloride 103, bicarbonate 26. BUN 19, creatinine 1.2, glucose 209, AST 40, ALT 79, total bilirubin 1.1, albumin 3.3. Micro blood culture negative so far. IMAGIN. Chest CT as above. 2. Lower extremity ultrasound as above. 3. Ultrasound of the abdomen as above. 4. Chest x-ray as above. DISCHARGE DIAGNOSES: 1. Febrile illness, etiology likely right lower extremity cellulitis. 2. Right lower extremity cellulitis with underlying chronic venous stasis dermatitis. 3. Tinea. 4. Diabetes. 5. Chest pain. Workup negative so far. 6. Abnormal LFTs, improving. RECOMMENDATIONS: 1. Discontinue IV vancomycin as he is requiring 2 grams IV q.12 and to avoid nephrotoxicity. 2. Continue Zosyn. 3. Start Zyvox. 4. Start micafungin. 5. Elevate right lower extremity. 6. Monitor labs and cultures. 7. Continue supportive care. Thank you, Dr. Tello for consulting Infectious Disease to participate in this patient's care. If you have any questions, do not hesitate to contact us. YOLANDA KASPER MD DR: CHASE/nts JOB#: [id number] / [id number]
--- NOTE | 2019-03-22 12:40 | PDOC ---
Infectious Disease Note Subjective Subjective Pt is doing better less pain and swelling in the rt leg fever pattern improving ROS ROS o/w neg Vital Sign Vital Signs Vital Signs Date Time Temp Pulse Resp B/P (MAP) Pulse Ox O2 Delivery O2 Flow Rate FiO2 03/22/19 11:00 98.6 65 17 124/57 (79) 98 Room Air 98.6 03/21/19 20:00 3.0 Physical Exam PHYSICAL EXAM GENERAL: Alert and oriented x 3, pleasant male, ambulating in room without difficulty. Cooperative. HEENT: Normocephalic, atraumatic, anicteric. No thrush. Oral mucosa is moist. Oral sores over the upper lip. No oropharyngeal exudate. NECK: Supple, no JVD. LUNGS: Clear bilaterally. No wheezing. HEART: S1, S2. No gallops and no murmurs. ABDOMEN: Soft, obese. Bowel sounds present, nontender, nondistended, no rebound, no guarding. EXTREMITIES: Bilateral chronic venous stasis changes present in the right lower extremity. Swelling, erythema, tenderness blisters and a few superficial excoriation. No purulence noted. Tinea present. DERMATOLOGIC: Warm, dry. No generalized rash except for above. CENTRAL NERVOUS SYSTEM: Alert and oriented x 3, grossly nonfocal. PSYCHIATRIC: Cooperative, appropriate mood and affect. Labs Lab Laboratory Tests Test 03/21/19 16:46 03/21/19 20:39 03/22/19 07:57 03/22/19 12:05 Glucose (Fingerstick) 152 mg/dL (70-99) 175 mg/dL (70-99) 99 mg/dL (70-99) 146 mg/dL (70-99) Micro Microbiology 03/17/19 Blood Culture - Preliminary, Resulted NO GROWTH AFTER 4 DAYS Objective Assessment 1. Febrile illness - better, etiology likely right lower extremity cellulitis.WBC - better 2. Right lower extremity cellulitis with underlying chronic venous stasis dermatitis - better. 3. Tinea. 4. Diabetes. 5. Chest pain. Workup negative so far. 6. Abnormal LFTs, improving. Plan Plan of Care Continue Zosyn/ Zyvox./micafungin. Elevate right lower extremity. Arterial dopplers Monitor labs and cultures. Continue supportive care. D/W ASHLEY DESOUZA MD Mar 22, 2019 12:40
[2019-03-22] MEDS: MICAFUNGIN 100 MG in IV DEXTROSE 5% 100ML 100 ML IV SCH (13:46)
--- NOTE | 2019-03-22 13:52 | NUR ---
SW following pt. Chart reviewed and pt lives at home. ID following pt. Will continue to follow pt pending dc needs.
[2019-03-22 15:00] VITALS: BP 135/54
--- NOTE | 2019-03-22 17:55 | RAD ---
Bilateral lower extremity arterial ultrasound History: Recurrent cellulitis, lower extremity edema Findings: Multiple grayscale, color, and duplex spectral analysis sonographic images were acquired of the lower extremity arteries bilaterally. There are no previous similar exams. On the left, there are mostly triphasic waveforms other than biphasic waveform of the profunda femoris artery. On the right, there are monophasic waveforms of the popliteal artery and extending through most of the calf arteries other than triphasic waveform of the dorsalis pedis artery. There are triphasic waveforms of the more proximal vessels on the right other than biphasic waveform of the profunda femoris artery. No vessel occlusion is demonstrated. Velocities in cm/sec: RIGHT Common femoral artery 155 Profunda femoris artery 60 Proximal SFA 181 Mid SFA 222 Distal SFA 211 Popliteal artery 145 Posterior tibial artery 95 proximally and 89 distally Peroneal artery 103 Anterior tibial artery 90 Dorsalis pedis artery 106 LEFT: Common femoral artery 136 Profunda femoris artery 75 Proximal SFA 122 Mid SFA 122 Distal SFA 107 Popliteal artery 96 Posterior tibial artery 69 proximally and 95 distally Peroneal artery 74 Anterior tibial artery 93 Dorsalis pedis artery 97 Impression: 1. There is no velocity change in a pattern to confidently suggest site of more focal stenosis. However there are abnormal monophasic waveforms on the right of the popliteal artery as well as posterior tibial, peroneal, and anterior tibial arteries. No vessel occlusion is demonstrated. Electronically signed by: Kentrell Dillard MD (03/22/2019 5:52 PM) [facility]
[2019-03-22 19:00] VITALS: BP 126/54
[2019-03-22] MEDS: INSULIN GLARGINE SYRINGE. SQ SCH (21:31)
[2019-03-22 23:00] VITALS: BP 106/67
[2019-03-23] MEDS: PIPERACILLIN/TAZOBACTAM 3.375 GM in IV NORMAL SALINE 50ML 50 ML IV SCH ×5 (00:31→23:56)
[2019-03-23 03:00] VITALS: BP 122/62
[2019-03-23 07:00] VITALS: BP 129/59
--- NOTE | 2019-03-23 07:54 | PDOC ---
Provider Note Provider Note no temp, bp ok- R legg looks same, art sono ok, has good pedal pulses- feel we can dc on zox /feb when ok w/ ID- rest of meds same LELAND GONZÁLES MD Mar 23, 2019 07:54
[2019-03-23] MEDS: GLIMEPIRIDE 2 MG TABLET. PO SCH (10:12)
[2019-03-23] MEDS: metFORMIN 500 MG TABLET PO SCH ×2 (10:12→18:54)
[2019-03-23] MEDS: LACTOBACILLUS RHAMNOSUS GG 1 CAPSULE. PO SCH ×2 (10:12→20:52)
[2019-03-23] MEDS: LINEZOLID 600 MG TABLET PO SCH ×2 (10:13→20:52)
[2019-03-23] MEDS: ASPIRIN CHEWABLE 81 MG TABLET. PO SCH (10:13)
[2019-03-23] MEDS: POTASSIUM CHLORIDE 20 MEQ TABLET.ER. PO SCH (10:13)
[2019-03-23] MEDS: hydroCHLOROthiazide 25 MG TABLET PO SCH (10:13)
[2019-03-23 11:00] VITALS: BP 134/57
--- NOTE | 2019-03-23 11:20 | PDOC ---
Infectious Disease Note Subjective Subjective Pt is doing better less pain and swelling in the rt leg fever pattern improving + Bm no N/V/D/SOA/rash Vital Sign Vital Signs Vital Signs Date Time Temp Pulse Resp B/P (MAP) Pulse Ox O2 Delivery O2 Flow Rate FiO2 03/23/19 07:00 98.5 65 18 129/59 (82) 96 Room Air 98.5 Physical Exam PHYSICAL EXAM GENERAL: Alert and oriented x 3, pleasant male, ambulating in room without difficulty. Cooperative. HEENT: Normocephalic, atraumatic, anicteric. No thrush. Oral mucosa is moist. Oral sores over the upper lip. No oropharyngeal exudate. NECK: Supple, no JVD. LUNGS: Clear bilaterally. No wheezing. HEART: S1, S2. No gallops and no murmurs. ABDOMEN: Soft, obese. Bowel sounds present, nontender, nondistended, no rebound, no guarding. EXTREMITIES: Bilateral chronic venous stasis changes present in the right lower extremity. 2 + Swelling, erythema,warm but less tenderness improved superficial excoriation. No purulence noted. Tinea present. DERMATOLOGIC: Warm, dry. No generalized rash except for above. CENTRAL NERVOUS SYSTEM: Alert and oriented x 3, grossly nonfocal. PSYCHIATRIC: Cooperative, appropriate mood and affect. Labs Lab Laboratory Tests Test 03/22/19 12:05 03/22/19 16:54 03/22/19 20:39 03/23/19 08:10 Glucose (Fingerstick) 146 mg/dL (70-99) 112 mg/dL (70-99) 194 mg/dL (70-99) 104 mg/dL (70-99) Micro Microbiology 03/17/19 Blood Culture - Preliminary, Resulted NO GROWTH AFTER 4 DAYS Objective Assessment 1. Febrile illness - better, etiology likely right lower extremity cellulitis.WBC - better 2. Right lower extremity cellulitis with underlying chronic venous stasis dermatitis - better.Arterial dopplers without gross occlusion 3. Tinea. 4. Diabetes. 5. Chest pain. Workup negative so far. 6. Abnormal LFTs, improving. Plan Plan of Care Continue Zosyn/ Zyvox./micafungin.Anticipate po 03/24 if improves Elevate right lower extremity more Monitor labs and cultures. Continue supportive care. D/W ASHLEY DESOUZA MD Mar 23, 2019 11:20
[2019-03-23] MEDS: MICAFUNGIN 100 MG in IV DEXTROSE 5% 100ML 100 ML IV SCH (12:00)
--- NOTE | 2019-03-23 12:30 | NUR ---
Patient seen per wound care consult. There are no open wounds at this time. Patient is being treated for cellulitis. Wound care will sign off at this time. Please re consult regarding any changes per wound care. Bed lowered and call light in reach.
[2019-03-23 15:00] VITALS: BP 134/56
[2019-03-23 19:00] VITALS: BP 136/66
[2019-03-23] MEDS: ACETAMINOPHEN 325 MG TABLET. PO PRN (20:51)
[2019-03-23] MEDS: INSULIN GLARGINE SYRINGE. SQ SCH (20:55)
[2019-03-23 23:00] VITALS: BP 112/73
[2019-03-24 02:08] VITALS: BP 121/52
[2019-03-24] MEDS: ACETAMINOPHEN 325 MG TABLET. PO PRN (04:07)
[2019-03-24] MEDS: PIPERACILLIN/TAZOBACTAM 3.375 GM in IV NORMAL SALINE 50ML 50 ML IV SCH (05:10)
[2019-03-24 05:37] LABS: GFR 79.1
[2019-03-24 07:22] VITALS: BP 126/63
--- NOTE | 2019-03-24 07:59 | PDOC ---
Provider Note Provider Note [id number] LELAND GONZÁLES MD Mar 24, 2019 07:59
--- NOTE | 2019-03-24 08:14 | DS ---
DATE OF DISCHARGE: 03/24/2019 HOSPITAL SUMMARY: A 48-year-old white male, known insulin-dependent diabetic, came in with some sharp upper left chest pain and just general fatigue and pain and swelling of his right lower extremity. Venous Doppler of the right leg showed no sign of any foreign body problems. Chest x-ray was clear as was a CTA of the chest and arterial Doppler of the right leg showed no significant vascular compromise. Blood cultures had no growth. Chemistry study showed good control of blood sugar with the use of Basaglar 50 units daily and CKD 3 with a GFR of 58 was noted and TSH was normal. CBC showed initial leukocytosis that resolved quickly with treatment. He was treated with IV vancomycin followed by Zosyn orally and then IV Zosyn throughout the hospital stay under the direction of Dr. Leger. He has been afebrile for several days and swelling of the right leg is gradually coming down and pain and redness is improved as well. He will go home today later if Dr. Leger is comfortable and to be followed as an outpatient. FINAL DIAGNOSES: 1. Cellulitis of the right leg. 2. Chronic kidney disease 3, stable. 3. Insulin-dependent diabetes mellitus type 2. OPERATIONS/PROCEDURES/COMPLICATIONS: None. CONSULTATIONS: Dr. Leger. DISPOSITION: He will likely go home on Zyvox 600 mg twice a day and Augmentin 875 mg twice a day, both for likely 1 more week, covering both Gram-positive and Gram-negative organisms as the origin of the cellulitis from the dermal wounds in his right anterior craven are unknown. He will take 50 units of Basaglar instead of his initial 35 and blood sugar control has been good. Follow up with Dr. Becker in about 1 week. We will follow renal function and diabetic progress as well. LELAND GONZÁLES MD DR: IVIS/agnieszka JOB#: [id number] / [id number]
[2019-03-24] MEDS: hydroCHLOROthiazide 25 MG TABLET PO SCH (09:01)
[2019-03-24] MEDS: LINEZOLID 600 MG TABLET PO SCH (09:01)
[2019-03-24] MEDS: ASPIRIN CHEWABLE 81 MG TABLET. PO SCH (09:01)
[2019-03-24] MEDS: LACTOBACILLUS RHAMNOSUS GG 1 CAPSULE. PO SCH (09:01)
[2019-03-24] MEDS: metFORMIN 500 MG TABLET PO SCH (09:01)
[2019-03-24] MEDS: POTASSIUM CHLORIDE 20 MEQ TABLET.ER. PO SCH (09:01)
[2019-03-24] MEDS: GLIMEPIRIDE 2 MG TABLET. PO SCH (09:02)
--- NOTE | 2019-03-24 09:30 | PDOC ---
Infectious Disease Note Subjective Subjective Pt is doing better less pain and swelling in the rt leg Able to get around + Bm no N/V/D/SOA/rash ROS ROS o/w neg Vital Sign Vital Signs Vital Signs Date Time Temp Pulse Resp B/P (MAP) Pulse Ox O2 Delivery O2 Flow Rate FiO2 03/24/19 07:22 98.1 61 18 126/63 (84) 97 Room Air 98.1 Physical Exam PHYSICAL EXAM GENERAL: Alert and oriented x 3, pleasant male, ambulating in room without difficulty. Cooperative. HEENT: Normocephalic, atraumatic, anicteric. No thrush. Oral mucosa is moist. Oral sores over the upper lip. No oropharyngeal exudate. NECK: Supple, no JVD. LUNGS: Clear bilaterally. No wheezing. HEART: S1, S2. No gallops and no murmurs. ABDOMEN: Soft, obese. Bowel sounds present, nontender, nondistended, no rebound, no guarding. EXTREMITIES: Bilateral chronic venous stasis changes present in the right lower extremity. 1+ Swelling, with less erythema, warmth. No gross tenderness improved superficial excoriation. No purulence noted. Tinea present. DERMATOLOGIC: Warm, dry. No generalized rash except for above. CENTRAL NERVOUS SYSTEM: Alert and oriented x 3, grossly nonfocal. PSYCHIATRIC: Cooperative, appropriate mood and affect. Labs Lab Laboratory Tests Test 03/23/19 12:05 03/23/19 17:31 03/23/19 20:50 03/24/19 04:55 Glucose (Fingerstick) 182 mg/dL (70-99) 172 mg/dL (70-99) 138 mg/dL (70-99) Creatinine 1.0 mg/dL (0.7-1.3) Estimated GFR (Cockcroft-Gault) 79.1 Test 03/24/19 07:32 Glucose (Fingerstick) 116 mg/dL (70-99) Micro Microbiology 03/17/19 Blood Culture - Preliminary, Resulted NO GROWTH AFTER 4 DAYS Objective Assessment 1. Febrile illness - better, etiology likely right lower extremity cellulitis.WBC - better 2. Right lower extremity cellulitis with underlying chronic venous stasis dermatitis - better.Arterial dopplers without gross occlusion 3. Tinea. 4. Diabetes. 5. Chest pain. Workup negative so far. 6. Abnormal LFTs, improving. Plan Plan of Correction on po Zyvox and augmentin for 7 days Rx written Elevate right lower extremity at home ok to go home and F/u with primary D/W RN ASHLEY ROWLAND MD Mar 24, 2019 09:30
[2019-03-24 11:00] VITALS: BP 135/75
[2019-03-24] MEDS ORDERED: LINE600T37 PO (11:18)
[2019-03-24] MEDS ORDERED: AMOX1TAB61 PO (11:33)
== END 2019-03-24 12:53 | disposition home or self-care (01) | DRG 603 ==
LOC: ER 17:23 → 2 SOUTH 20:05 → 5 SOUTH 03-19 14:28
PROVIDERS: ADMIT Family Medicine; ATTEND Family Medicine
PROC: 5A09357 Assistance with Respiratory Ventilation, Less than 24 Consecutive Hours, Continuous Positive Airway Pressure (ICD-10-PCS; principal; 2019-03-20)
DX: L03.115 Cellulitis of right lower limb (principal); Z68.42 Body mass index [BMI] 45.0-49.9, adult; R07.89 Other chest pain; E11.65 Type 2 diabetes mellitus with hyperglycemia; E11.22 Type 2 diabetes mellitus with diabetic chronic kidney disease; E66.01 Morbid (severe) obesity due to excess calories; G47.33 Obstructive sleep apnea (adult) (pediatric); I25.10 Atherosclerotic heart disease of native coronary artery without angina pectoris; M19.042 Primary osteoarthritis, left hand; M19.041 Primary osteoarthritis, right hand; I87.2 Venous insufficiency (chronic) (peripheral); B35.9 Dermatophytosis, unspecified; D69.6 Thrombocytopenia, unspecified; E78.5 Hyperlipidemia, unspecified; K76.0 Fatty (change of) liver, not elsewhere classified; I12.9 Hypertensive chronic kidney disease with stage 1 through stage 4 chronic kidney disease, or unspecified chronic kidney disease; N18.3 Chronic kidney disease, stage 3 (moderate); I25.2 Old myocardial infarction; Z79.4 Long term (current) use of insulin; Z88.8 Allergy status to other drugs, medicaments and biological substances; Z82.49 Family history of ischemic heart disease and other diseases of the circulatory system; Z79.899 Other long term (current) drug therapy
CPT/HCPCS: 36415; 71045; 71275; 76705; 80053; 80061; 80202; 80307; 81001; 82553; 82565; 82962; 83036; 83605; 83735; 83880; 84443; 84484; 85007; 85025; 85049; 85379; 85610; 85730; 87040; 93005; 93306; 93925; 93971; G0480; J1815; J2248; J2270; J2543; J3370; J3475; J7030; J7040; J7050; Q9967; 99285-25; G0378

== ENCOUNTER → 2020-10-27 | Outpatient (CLI) | payer OTHER ==
[~2020-10-27] MED LIST: AMOX1TAB61 PO; ASPI81TA59 PO; CHOL100013 PO; DOCU100T11 PO; FURO20TA3 PO; GLIM4TAB8 PO; INSU100V13 SQ; LINE600T12 PO; LOSA1TAB22 PO; METF10007 PO; OMEG1CAP29 PO; POTA20TA4 PO
--- NOTE | 2020-10-28 07:09 | RAD ---
EXAM: Right lower extremity arterial Doppler sonogram with bilateral ankle-brachial indices (CHELLY). HISTORY: Nonhealing wounds. Peripheral vascular disease. TECHNIQUE: Doppler sonographic evaluation of the right lower extremity was performed and bilateral pr essure readings were assessed. FINDINGS: Right brachial pressure: 122 mmHg Left brachial pressure: 121 mmHg Right ankle pressure (dorsalis pedis): 139 mmHg Right ankle pressure (posterior tibial): 138 mmHg Right CHELLY: 1.14 Left ankle pressure (dorsalis pedis): 137 mmHg Left ankle pressure (posterior tibial): 146 mmHg Left CHELLY: 1.20 There are triphasic waveforms throughout the right lower extension of the arteries. The peak systolic velocities remain within normal limits. There is soft tissue edema. IMPRESSION: 1. Normal bilateral ankle-brachial indices. 2. No Doppler evidence of severe stenosis or occlusion involving the right lower extremity arteries. 3. Right lower extremity soft tissue edema. Electronically signed by: Joanna Farfan MD (10/28/2020 7:06 AM) [id number]
== END ==
LOC: US 15:47
PROVIDERS: ATTEND Nurse Practitioner Family
DX: S81.801D Unspecified open wound, right lower leg, subsequent encounter (principal); M79.89 Other specified soft tissue disorders; M79.604 Pain in right leg; X58.XXXD Exposure to other specified factors, subsequent encounter
CPT/HCPCS: 93922; 93926

== ENCOUNTER → 2021-01-17 | Outpatient (CLI) | payer OTHER ==
--- NOTE | 2021-01-17 16:25 | RAD ---
EXAM: Right lower extremity venous reflux sonogram. HISTORY: Nonhealing wounds. Venous reflux. TECHNIQUE: Sonographic imaging of the right lower extremity veins was performed. COMPARISON: None. FINDINGS: The right greater saphenous vein measures 1.14 cm in caliber with 1.4 seconds reflux within the proximal thigh, 0.70 cm in caliber with 1.9 seconds reflux within the upper mid thigh, 0.46 cm i n caliber with 2.7 seconds reflux within the mid thigh, 0.45 cm in caliber with 2.4 seconds reflux wi thin the distal thigh, 3.6 cm in caliber with 3.1 seconds reflux within the proximal calf, 2.8 cm in caliber with 2.4 seconds reflux within the mid calf and 3.3 cm in caliber with 2.2 seconds reflux wit hin the distal calf. The greater saphenous vein courses immediately deep to a soft tissue wound withi n the mid to distal calf. There are varicose veins surrounding this location. No significant concomit ant lifter driver veins are seen. The right lesser saphenous vein measures 0.41 cm within the proximal calf, 0.41 cm within the mid thaddeus f and 0.40 cm within the distal calf. There is no evidence of lesser saphenous vein reflux. IMPRESSION: 1. Right greater saphenous vein reflux throughout the right lower extremity, with reflux times and ca liber measurements described above. 2. No evidence of right lesser saphenous vein reflux. 3. Soft tissue wound within the mid distal right calf overlying the greater saphenous vein and surrou nding varicose veins. Electronically signed by: Joanna Farfan MD (01/17/2021 4:23 PM) [id number]
== END ==
LOC: US 14:55
PROVIDERS: ATTEND Preventive Medicine Undersea and Hyperbaric Medicine
DX: I83.891 Varicose veins of right lower extremity with other complications (principal); L97.211 Non-pressure chronic ulcer of right calf limited to breakdown of skin; M79.89 Other specified soft tissue disorders
CPT/HCPCS: 93971

== ENCOUNTER → 2021-02-20 | Outpatient (CLI) | payer OTHER ==
--- NOTE | 2021-02-20 09:06 | RAD ---
MR#: [id number] Date of Study: 02/20/2021 Ordering Physician: LUTHER MCCLURE, Referring Physician: LUTHER MCCLURE, Tech: Bruno White MBA, RDMS, RVT, RDCS, RTR APPROVED REPORT Patient Location: OUT-PATIENT Indications Rest Pain:Bilaterally Findings Right arm 129, left arm 112 Right ankle 152, left ankle 154 Bilateral CHELLY 1.2 Critical Notification Critical Value: No <Conclusion> 1. Normal bilateral CHELLY Signed by : Luther Mcclure, Electronically Approved : 02/20/2021 09:06:10
--- NOTE | 2021-02-20 09:06 | RAD ---
MR#: [id number] Date of Study: 02/20/2021 Ordering Physician: LUTHER MCCLURE, Referring Physician: LUTHER MCCLURE, Tech: Bruno White MBA, RDMS, RVT, RDCS, RTR APPROVED REPORT Patient Location : OUT-PATIENT Indications Lower Extremity Edema : Left Findings Limited images of the left saphenofemoral junction are grossly unremarkable. Left great saphenous vein measures 8.3 mm and does not show any evidence of reflux. The left lesser saphenous veins does not show any evidence of reflux. Critical Notification Critical Value: No <Conclusion> 1. Negative for reflux in the left greater and lesser saphenous veins. Signed by : Luther Mcclure, Electronically Approved : 02/20/2021 09:05:36
--- NOTE | 2021-02-20 09:07 | RAD ---
MR#: [id number] Date of Study: 02/20/2021 Ordering Physician: LUTHER MCCLURE, Referring Physician: LUTHER MCCLURE, Tech: Bruno White, JUSTIN, RDMS, RVT, RDCS, RTR APPROVED REPORT Patient Location: OUT-PATIENT Indications Rest Pain:Bilaterally VELOCITY AND DOPPLER WAVEFORM ANALYSIS RIGHT cm/secWaveformSeverity LEFT cm/secWaveform Severity dCFA 130.0TriphasicdCFA 132.0Triphasic Prof Fem Art. 81.0BiphasicProf Fem Art. 65.0Biphasic Fem Art Prox. 107.0TriphasicFem Art Prox. 127.0Triphasic Fem Art Mid. 100.0TriphasicFem Art Mid. 120.0Triphasic Fem Art Dist. 105.0TriphasicFem Art Dist. 96.0Triphasic Pop Art(Fossa) 82.0TriphasicPop Art(AK) 95.0Triphasic CLINICAL SUPPORT ASSOCIATE Prox. 86.0TriphasicPTA Prox. 38.0Triphasic CLINICAL SUPPORT ASSOCIATE Dist. 102.0TriphasicPTA Dist. 83.0Triphasic SHRUTI Prox. 62.0TriphasicATA Prox. 62.0Triphasic DPA 108TriphasicDPA 84Triphasic Findings Grayscale images of the bilateral lower extremity arterial vessels demonstrate mild diffuse atheroscl erosis. Spectral waveforms and color Doppler are within normal limits with mostly triphasic and biphasic wave forms. There is two-vessel runoff below the knee and the bilateral peroneal arteries were not visualized. Critical Notification Critical Value: No <Conclusion> 1. No significant bilateral lower extremity arterial disease. 2. Bilateral peroneal arteries were not visualized. Signed by : Luther Mcclure, Electronically Approved : 02/20/2021 09:07:27
--- NOTE | 2021-02-20 18:16 | CARD ---
MR#: [id number] Date of Study: 02/20/2021 Ordering Physician: LUTHER MCCLURE, Referring Physician: LUTHER MCCLURE, Tech: Selene Mujica [facility] APPROVED REPORT EXAM: Two-dimensional and M-mode echocardiogram with Doppler and color Doppler. Other Information Quality : Technically LimitedHR: 55bpm Rhythm : NSR INDICATION Dyspnea RISK FACTORS Hypertension Obesity Hyperlipidemia 2D DIMENSIONS RVDd3.0 (2.9-3.5cm)Left Atrium(2D)5.0 (1.6-4.0cm) IVSd1.3 (0.7-1.1cm)Aortic Root(2D)3.4 (2.0-3.7cm) LVDd5.5 (3.9-5.9cm)LVOT Diameter2.4 (1.8-2.4cm) PWd1.1 (0.7-1.1cm)LVDs3.2 (2.5-4.0cm) FS (%) 41.7 %SV107.8 ml Aortic Valve AoV Peak Isacc.167.5cm/sAoV VTI33.9cm AO Peak GR.11.2mmHgLVOT Peak Isacc.109.3cm/s AO Mean GR.5mmHgAVA (VMAX)2.97cm2 Mitral Valve MV E Bhgbiugc576.4cm/sMV DECEL ITUA104bw MV A Pqyeeqcb24.4cm/sE/A Ratio1.1 Pulmonary Vein S1 Joajzwqa09.4cm/sD2 Dulojqnn97.1cm/s PVa [id number] LEFT VENTRICLE The left ventricle is normal size. There is mild concentric left ventricular hypertrophy. The left ve ntricular systolic function is normal and the ejection fraction is within normal range. Estimated LV ejection fraction 55-60%. There is normal LV segmental wall motion. Transmitral Doppler flow pattern is Grade I-abnormal relaxation pattern. RIGHT VENTRICLE The right ventricle is normal size. There is normal right ventricular wall thickness. The right ventr icular systolic function is normal. ATRIA The left atrium size is normal. The right atrium size is normal. The interatrial septum is intact wit h no evidence for an atrial septal defect or patent foramen ovale as noted on 2-D or Doppler imaging. AORTIC VALVE The aortic valve is normal in structure and function. Doppler and Color Flow revealed no significant aortic regurgitation. There is no significant aortic valvular stenosis. MITRAL VALVE The mitral valve is normal in structure and function. There is no evidence of mitral valve prolapse. There is no mitral valve stenosis. Doppler and Color Flow revealed no mitral valve regurgitation note d. TRICUSPID VALVE The tricuspid valve is normal in structure and function. Doppler and Color Flow revealed no tricuspid valve regurgitation noted. There is no tricuspid valve stenosis. PULMONIC VALVE The pulmonary valve is normal in structure and function. Doppler and Color Flow revealed no pulmonic valvular regurgitation. GREAT VESSELS The aortic root is normal in size. The ascending aorta is normal in size. The IVC is normal in size a nd collapses >50% with inspiration. PERICARDIAL EFFUSION There is no evidence of significant pericardial effusion. Critical Notification Critical Value: Yes <Conclusion> The left ventricle is normal size. The left ventricular systolic function is normal and the ejection fraction is within normal range. Estimated LV ejection fraction 55-60%. There is mild concentric left ventricular hypertrophy. Doppler and Color Flow revealed no significant aortic regurgitation. There is no significant aortic valvular stenosis. Doppler and Color Flow revealed no mitral valve regurgitation noted. Doppler and Color Flow revealed no tricuspid valve regurgitation noted. Signed by : Valentín Guerin MD Electronically Approved : 02/20/2021 18:16:00
== END ==
LOC: US 08:32
PROVIDERS: ATTEND Internal Medicine Cardiovascular Disease
DX: I11.9 Hypertensive heart disease without heart failure (principal); I70.203 Unspecified atherosclerosis of native arteries of extremities, bilateral legs; I87.2 Venous insufficiency (chronic) (peripheral)
CPT/HCPCS: 93306; 93922; 93925; 93971

== ENCOUNTER → 2021-03-13 | Outpatient (CLI) | payer OTHER ==
[~2021-03-13] MED LIST changes: +ATOR20TA58 PO; +CALC600T60 PO; +EMPA25TA PO; +IBUP-1060 PO; +INSU100I13 SQ
--- NOTE | 2021-03-13 14:24 | RAD ---
INDICATION: Reason: Left Leg Swelling; Pain in Left Calf / Spl. Instructions: / History: COMPARISON: February 20, 2021 TECHNIQUE: Grayscale, color and doppler ultrasound images were obtained of the left lower extremity v enous vasculature. LEFT: No thrombus identified in the common femoral vein, femoral vein, popliteal vein or visualized calf ve ins. IMPRESSION: * No thrombus identified in deep venous system of the left lower extremity. Electronically signed by: Rovetro Gay MD (03/13/2021 2:22 PM) [id number]
== END ==
LOC: US 13:35
PROVIDERS: ATTEND Family Medicine
DX: M79.662 Pain in left lower leg (principal); M79.89 Other specified soft tissue disorders; L03.116 Cellulitis of left lower limb
CPT/HCPCS: 93971

== ENCOUNTER 2021-03-20 09:19 | Inpatient (IN) | payer OTHER ==
[~2021-03-20] VITALS: Ht 182.9 cm; Wt 145.1 kg
[~2021-03-20 09:19] MED LIST changes: -ATOR20TA58 PO; -CALC600T60 PO; -EMPA25TA PO; -IBUP-1060 PO; -INSU100I13 SQ
[2021-03-20] MEDS ORDERED: VANCOMYCIN PER PHARMACY MC ONE (09:45)
[2021-03-20] MEDS ORDERED: IV NORMAL SALINE 1000ML BAG 1,000 ML IV SCH (09:45)
[2021-03-20 09:57] LABS: BASO % 0 % (0-3); EOS # 0.2 x10^3/uL (0.0-0.7); EOS % 3 % (0-3); HEMATOCRIT 44.2 % (39.0-53.0); LYMPH # 1.9 x10^3/uL (1.0-4.8); LYMPH % 24 % (24-48); MEAN CORPUSCULAR HEMOGLOBIN 29 pg (25-35); MEAN CORPUSCULAR HGB CONC 34 g/dL (31-37); MEAN CORPUSCULAR VOLUME 84 fL (79-100); MONO # 0.5 x10^3/uL (0.0-1.1); MONO % 6 % (0-9); NEUT # 5.4 x10^3/uL (1.8-7.7); NEUT % 67 % (31-73); PLATELET COUNT 310 x10^3/uL (140-400); RED BLOOD COUNT 5.24 x10^6/uL (4.30-5.70); RED CELL DISTRIBUTION WIDTH 14.4 % (11.5-14.5); WHITE BLOOD COUNT 8.1 x10^3/uL (4.0-11.0)
[2021-03-20] MEDS ORDERED: VANCOMYCIN 2 GM in IV NORMAL SALINE 500ML BAG 500 ML IV ONE (10:00)
[2021-03-20 10:10] LABS: CALCIUM 9.1 mg/dL (8.5-10.1); GFR 78.5
--- NOTE | 2021-03-20 10:11 | PHYS DOC ---
Past Medical History Past Medical History: Diabetes-Type II, Hypertension, PA Additional Past Medical Histor: CELLULITIS Past Surgical History: Other Additional Past Surgical Histo: BILATERAL MENISCUS REPAIR TO KNEES Smoking Status: Never Smoker Alcohol Use: None Drug Use: None General Adult EDM: Chief Complaint: CELLULITIS HPI: HPI: Patient is a 50 year old male who presents with left lower leg cellulitis that goes from the lower leg all the way up to just below the knee. Patient was sent over from his primary care office for evaluation for admission for IV antibiotics. He has been on doxycycline and Bactrim for this for the last 2 weeks. He took his last dose of that today. He is currently having wound home care attendant to his right lower leg where it is wrapped and he has an open wound on that leg. He denies fever, body aches, chest pain, shortness of air, drainage, abdominal pain, nausea, vomiting, diarrhea. He has a history of diabetes, hypertension, high cholesterol, bilateral meniscus repair to his bilateral knees and PA. States he took all of his morning medications today. Currently rating his pain a 2 out of 10 states it is a burning type pain. Review of Systems: Review of Systems: Constitutional: Denies fever or chills. [] Eyes: Denies change in visual acuity. [] HENT: Denies nasal congestion or sore throat. [] Respiratory: Denies cough or shortness of breath. [] Cardiovascular: Denies chest pain or +Left leg edema. [] GI: Denies abdominal pain, nausea, vomiting, bloody stools or diarrhea. [] : Denies dysuria. [] Musculoskeletal: Denies back pain or joint pain. +left leg pain[] Integument: Denies rash. +Leg cellulitis[] Neurologic: Denies headache, focal weakness or sensory changes. [] Endocrine: Denies polyuria or polydipsia. [] Lymphatic: Denies swollen glands. [] Psychiatric: Denies depression or anxiety. [] Heart Score: C/O Chest Pain: No Risk Factors: Risk Factors: DM, Current or recent (<one month) smoker, HTN, HLP, family history of CAD, obesity. Risk Scores: Score 0 - 3: 2.5% MACE over next 6 weeks - Discharge Home Score 4 - 6: 20.3% MACE over next 6 weeks - Admit for Clinical Observation Score 7 - 10: 72.7% MACE over next 6 weeks - Early Invasive Strategies Current Medications: Current Medications Medications (Trade) Dose Ordered Sig/Mariama Start Time Stop Time Status Last Admin Dose Admin Sodium Chloride 1,000 ml @ 1,000 mls/hr Q1H 03/20/21 09:45 03/20/21 10:44 Vancomycin HCl (Vanco Per Pharmacy) 1 each 1X ONCE 03/20/21 09:45 03/20/21 09:50 DC Vancomycin HCl 2 gm/Sodium Chloride 500 ml @ 250 mls/hr 1X ONCE 03/20/21 10:00 03/20/21 11:59 Allergies: Allergies: Allergies Coded Allergies Type Severity Reaction Last Updated Verified ibuprofen Allergy Severe Swelling 11/26/15 Yes naproxen Allergy Severe Swelling 11/26/15 Yes Physical Exam: PE: Constitutional: Well developed, well nourished, no acute distress, non-toxic appearance. [] HENT: Normocephalic, atraumatic, bilateral external ears normal, oropharynx moist, no oral exudates, nose normal. [] Eyes: PERRLA, EOMI, conjunctiva normal, no discharge. [] Neck: Normal range of motion, no tenderness, supple, no stridor. [] Cardiovascular:Heart rate regular rhythm, no murmur [] Lungs & Thorax: Bilateral breath sounds clear to auscultation [] Abdomen: Bowel sounds normal, soft, no tenderness, no masses, no pulsatile masses. [] Skin: Warm, dry, left lower leg cellulitis and erythema, no rash. [] Back: No tenderness, no CVA tenderness. [] Extremities: No tenderness, no cyanosis, no clubbing, ROM intact, left lower leg 2+ edema. [] Neurologic: Alert and oriented X 3, normal motor function, normal sensory function, no focal deficits noted. [] Psychologic: Affect normal, judgement normal, mood normal. [] Current Patient Data: Labs: Laboratory Tests Test 03/20/21 09:31 White Blood Count 8.1 x10^3/uL (4.0-11.0) Red Blood Count 5.24 x10^6/uL (4.30-5.70) Hemoglobin 15.0 g/dL (13.0-17.5) Hematocrit 44.2 % (39.0-53.0) Mean Corpuscular Volume 84 fL (79-100) Mean Corpuscular Hemoglobin 29 pg (25-35) Mean Corpuscular Hemoglobin Concent 34 g/dL (31-37) Red Cell Distribution Width 14.4 % (11.5-14.5) Platelet Count 310 x10^3/uL (140-400) Neutrophils (%) (Auto) 67 % (31-73) Lymphocytes (%) (Auto) 24 % (24-48) Monocytes (%) (Auto) 6 % (0-9) Eosinophils (%) (Auto) 3 % (0-3) Basophils (%) (Auto) 0 % (0-3) Neutrophils # (Auto) 5.4 x10^3/uL (1.8-7.7) Lymphocytes # (Auto) 1.9 x10^3/uL (1.0-4.8) Monocytes # (Auto) 0.5 x10^3/uL (0.0-1.1) Eosinophils # (Auto) 0.2 x10^3/uL (0.0-0.7) Basophils # (Auto) 0.0 x10^3/uL (0.0-0.2) Laboratory Tests 03/20/21 09:31 Vital Signs: Vital Signs Date Time Temp Pulse Resp B/P (MAP) Pulse Ox O2 Delivery O2 Flow Rate FiO2 03/20/21 09:21 97.9 92 24 149/72 (97) 93 97.9 EKG: EK and read by Dr. Licona is sinus rhythm without a STEMI Radiology/Procedures: Radiology/Procedures: [] Impression: [facility] [address] [place] [address] IMAGING REPORT Signed PATIENT: ARACELIS CABA ACCOUNT: [id number] : 1970 LOCATION: ER AGE: 50 SEX: M EXAM STATUS: REG ER ORD. PHYSICIAN: GRACE CHASE APRN REASON: DIABETIC CELLULITIS PROCEDURE: TIBIA FIBULA LEFT XR LT TIBIA + FIBULA History: Diabetic cellulitis. Comparison: None. Technique: 4 views of the left tibia and fibula. Findings: Osseous mineralization is normal. No fracture or dislocaton. Diffuse soft tissue calcifications overlying the left lower leg. No aggressive osseous erosive process. No subcutaneous emphysema. Plantar calcaneal spur. Impression: 1. No acute osseous abnormality in the left tibia and fibula. Electronically signed by: Tereso Ch MD (03/20/2021 11:12 AM) [id number] DICTATED and SIGNED BY: TERESO CH MD DATE: 03/20/21 [id number] Course & Med Decision Making: Course & Med Decision Making Pertinent Labs and Imaging studies reviewed. (See chart for details) See HPI. Alert and oriented x4. Ambulatory steady gait. Speaks in full clear sentences. Left lower extremity 2+ swelling. Pedal pulse strong present. Left lower leg reddened but no open wounds. Full range of motion. He does have neuropathy. Patient recently had an venous and arterial ultrasound on legs and they were negative. Blood work is generally unremarkable. He does have a la ctic acid of 2.2. Seeing as how he has failed outpatient therapy he will be inpatient for IV therapy. Patient agrees to this. Patient admitted to Dr. Gay. [] Manju Disclaimer: Manju Disclaimer: This electronic medical record was generated, in whole or in part, using a voice recognition dictation system. Departure Departure Impression: Primary Impression: Cellulitis of left lower extremity Disposition: ADMITTED INPATIENT Admitting Physician: Fred Gay Condition: STABLE Referrals: STAR POLANCO MD (PCP) GRACE CHASE APRN Mar 20, 2021 10:11
[2021-03-20 10:16] LABS: ALBUMIN/GLOBULIN RATIO 0.5 (1.0-1.7); C-REACTIVE PROTEIN 27.8 mg/L (0-3.3); TOTAL BILIRUBIN 0.5 mg/dL (0.2-1.0); TOTAL PROTEIN 9.1 g/dL (6.4-8.2)
[2021-03-20 10:34] LABS: CLARITY,URINE CLEAR; COLOR,URINE YELLOW
[2021-03-20 10:35] LABS: BACTERIA,URINE 0 /HPF (0-FEW); BILIRUBIN,URINE NEGATIVE (NEG); NITRITE,URINE NEGATIVE (NEG); PROTEIN,URINE NEGATIVE (NEG-TRACE); RBC,URINE OCC /HPF (0-2); UROBILINOGEN,URINE 0.2 mg/dL (0.2 mg/dL); WBC,URINE OCC /HPF (0-4)
--- NOTE | 2021-03-20 11:14 | RAD ---
XR LT TIBIA + FIBULA History: Diabetic cellulitis. Comparison: None. Technique: 4 views of the left tibia and fibula. Findings: Osseous mineralization is normal. No fracture or dislocaton. Diffuse soft tissue calcifications overl meng the left lower leg. No aggressive osseous erosive process. No subcutaneous emphysema. Plantar ca lcaneal spur. Impression: 1. No acute osseous abnormality in the left tibia and fibula. Electronically signed by: Tereso Owusu MD (03/20/2021 11:12 AM) [id number]
[2021-03-20] MEDS ORDERED: ACETAMINOPHEN 325 MG TABLET. PO PRN (11:45)
[2021-03-20] MEDS ORDERED: ONDANSETRON PF 4 MG/2 ML VIAL. IVP PRN (11:45)
[2021-03-20 15:00] VITALS: BP 135/79
--- NOTE | 2021-03-20 15:25 | EKG ---
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
[2021-03-20] MEDS ORDERED: EMPA25TA PO (16:06)
[2021-03-20] MEDS ORDERED: INSU100I13 SQ (16:06)
[2021-03-20] MEDS ORDERED: IBUP-1060 PO (16:06)
[2021-03-20] MEDS ORDERED: ATOR20TA58 PO (16:06)
[2021-03-20] MEDS ORDERED: CALC600T60 PO (16:06)
--- NOTE | 2021-03-20 16:07 | NUR ---
patient states that his allergy to ibuprofen is a rash but it is from Aleve or Advil, not the generic ibuprofen, and takes 800 mg q4h PRN.
[2021-03-20] MEDS: VANCOMYCIN PER PHARMACY MC PRN (18:16)
--- NOTE | 2021-03-20 18:23 | NUR ---
Pharmacy Vancomycin Dosing Note S:Consulted to monitor and dose vancomycin started 03/20/21. O:ARACELIS CABA is a 50 year old M with Cellulitis . Height: 6 feet, 0 inches Weight: 145.4 kg [place] Body Weight: 77.60 Adjusted Body Weight: 104.72 Dosing Weight: Actual Other Antibiotics: LABS: Last BUN: 16 Last Creatinine: 1.0 Creatinine Clearance: 128 mL/min Last WBC: 8.1 Last Procalcitonin: Tmax (past 24 hours): 98.4 Microbiology: I/O: Drug Levels: Last level: on at Last dose given 03/20/21 at 1016 Vancomycin Dosing: Loading Dose: 2000 mg x1 Dosing Weight: Actual Target Trough: 10-20 PHARMACY MIXED MEDICATION AND SENT TO ER A: Based on weight and est. CrCl: P: 1. Vancomycin 2000mg, followed by Vancomycin 1500 mg IV q8h. 2. Follow up Trough level on 03/21/21 at 0930. 3. Pharmacy will continue to monitor, follow and adjust therapy as needed. Vahid Tate [facility], 03/20/21 [id number]
[2021-03-20] MEDS: metFORMIN 500 MG TABLET PO SCH (18:44)
[2021-03-20] MEDS: VANCOMYCIN 1.5 GM in IV NORMAL SALINE 500ML BAG 500 ML IV SCH (18:44)
[2021-03-20] MEDS: CALCIUM CARB/VIT D3 500/200 TABLET. PO SCH (18:44)
[2021-03-20] MEDS: POTASSIUM CHLORIDE 20 MEQ TABLET.ER. PO SCH (18:44)
[2021-03-20 19:00] VITALS: BP 118/81
[2021-03-20] MEDS: ASPIRIN CHEWABLE 81 MG TABLET. PO SCH (21:47)
[2021-03-20] MEDS: ATORVASTATIN CALCIUM 20 MG TABLET PO SCH (21:48)
[2021-03-20] MEDS: DOCUSATE SODIUM 100 MG CAPSULE. PO SCH (21:48)
[2021-03-20] MEDS: INSULIN GLARGINE SYRINGE. SQ SCH (21:52)
[2021-03-20 23:00] VITALS: BP 120/58
[2021-03-21] MEDS: IBUPROFEN 200 MG PO PRN ×2 (01:06→20:33)
[2021-03-21] MEDS: VANCOMYCIN 1.5 GM in IV NORMAL SALINE 500ML BAG 500 ML IV SCH (02:20)
[2021-03-21 03:00] VITALS: BP 120/68
[2021-03-21 07:00] VITALS: BP 127/76
[2021-03-21] MEDS: CALCIUM CARB/VIT D3 500/200 TABLET. PO SCH ×2 (08:00→16:25)
[2021-03-21] MEDS: hydroCHLOROthiazide 25 MG TABLET PO SCH (08:22)
[2021-03-21] MEDS: CHOLECALCIFEROL (VITAMIN D3) 1,000 UNIT TABLET PO SCH (08:23)
[2021-03-21] MEDS: OMEGA-3 FATTY ACIDS/FISH OIL 1,000 MG CAPSULE. PO SCH ×2 (08:23→16:24)
[2021-03-21] MEDS: LOSARTAN POTASSIUM 50 MG TABLET. PO SCH (08:23)
[2021-03-21] MEDS: POTASSIUM CHLORIDE 20 MEQ TABLET.ER. PO SCH ×2 (08:23→16:24)
[2021-03-21] MEDS: metFORMIN 500 MG TABLET PO SCH ×2 (08:23→16:25)
--- NOTE | 2021-03-21 09:45 | CONS ---
DATE OF CONSULTATION: 03/21/2021 REQUESTING PHYSICIAN: Fred Gay MD REASON FOR CONSULTATION: Cellulitis, failed outpatient therapy. HISTORY OF PRESENT ILLNESS: This is a 50-year-old gentleman with history of diabetes, hypertension, who also has a right lower extremity venous insufficiency ulcer came in with, patient had cellulitis of the left leg and had been from 2 weeks on doxycycline and Bactrim, not getting better. The patient denies any fever, denies any nausea, vomiting, diarrhea. Denies any chest pain, shortness of breath. The swelling and the pain is such that he is not able to walk on it. PAST MEDICAL HISTORY: Positive for obesity, hypertension, diabetes mellitus, bilateral venous insufficiency and he has a right lower extremity ulcer. SOCIAL HISTORY: Negative for smoking, alcohol, illicit drug use. ALLERGIES: No known drug allergies. CURRENT MEDICATIONS: Reviewed. The patient is on vancomycin. REVIEW OF SYSTEMS: As in HPI. All other systems reviewed and are negative. PHYSICAL EXAMINATION: GENERAL: Alert, oriented gentleman, not in any distress. VITAL SIGNS: Stable, afebrile. HEENT: NAD. NECK: Supple, no JVP, no lymphadenopathy. LUNGS: Clear. HEART: S1, S2 regular. ABDOMEN: Soft, nontender, no organomegaly. EXTREMITIES: Right lower extremity has a Profore dressing in place, not opened. Apparently, there is ulcer and Wound Care is taking care of it and venous manager financial laser therapy has been planned. Left lower extremity has venous insufficiency changes present. There is a discoloration with a tenderness and edema of the left leg all the way from the knee to the ankle. There is no open wound. Dorsalis pedis is weakly palpable. NEUROLOGIC: The patient is alert, awake, and appropriate. No focal neurologic deficit. LABORATORY DATA: White count is normal. Sed rate is 88. BUN and creatinine is normal. Lactic acid was 2.2. Urinalysis unremarkable. No blood culture yet. Tib-fib x-ray was unremarkable. Venous Doppler is unremarkable. The patient had arterial study a month ago that was normal bilaterally. IMPRESSION: 1. Left lower extremity cellulitis, failed outpatient therapy. 2. Diabetes mellitus. 3. Obesity. 4. Hypertension. 5. Venous insufficiency. RECOMMENDATIONS: Continue vancomycin, add cefepime. Leg elevation and will continue to follow. Thank you very much, Dr. Gay, for giving me opportunity to participate in this patient's care. VONDA/COLEMAN DR: Ave TID: [id number]
[2021-03-21 10:26] LABS: VANC TR 21.4 mcg/mL (10.0-20.0)
[2021-03-21] MEDS: AMMONIUM LACTATE 12% TOPICAL LOTION 225GM BOTTLE. TP SCH ×2 (10:38→20:33)
[2021-03-21] MEDS: CEFEPIME HCL IV Push 2 GM VIAL. IVP SCH ×2 (10:38→20:33)
--- NOTE | 2021-03-21 10:38 | HP ---
ADMIT DATE: 03/20/2021 CHIEF COMPLAINT: Left leg pain. HISTORY OF PRESENT ILLNESS: A 50-year-old white male with known hypertension, diabetes, had had cellulitis of his left lower extremity for about 2 weeks. He was taking doxycycline without much improvement and then switched to Bactrim, continued, no improvement and was sent to the ER for Dr. Becker for admission. He has received IV vancomycin and he is feeling better at this time. Denies fever, chills, chest pain, cough or any other particular complaints. PAST MEDICAL HISTORY: Multiple meds including Lantus for diabetes. Last A1c was 7.8 about 1 month ago. ALLERGIES: No allergies are known. VACCINATION: Tetanus status is uncertain as is COVID vaccination status. SOCIAL HISTORY: , nonsmoker, nondrinker to my knowledge, he is employed. FAMILY HISTORY: Unremarkable. REVIEW OF SYSTEMS: Unremarkable. PHYSICAL EXAMINATION: ENT: Otherwise all within normal limits. NECK: No bruits, nodes or masses. LUNGS: Clear. CARDIOVASCULAR: Regular rate. No irregular beat or murmur. ABDOMEN: Soft, benign, obese, nontender. EXTREMITIES: The right leg is heavily bandaged. The left leg has diffuse falacious collarable of below the knee with no open wounds. He has thick hyperkeratosis of the sole of the left foot, with some interdigital irritation between the toes, but pedal pulses are good on the left foot dorsally and posterior tibial. NEUROLOGIC: Physiologic and nonfocal. ASSESSMENT: Cellulitis of the left lower extremity, unresponsive to outpatient treatment. Controlled type 2 diabetes, hyperkeratosis of the left leg, chronic venous insufficiency is contributing. May have a component of fungal infection of both feet as well. PLAN: Continue IV vancomycin for now. Lovenox prophylaxis will be added. Lac-Hydrin to the left foot and supportive care. Vaccination status will be updated. MARTHA DR: Elia TID: [id number]
--- NOTE | 2021-03-21 10:42 | NUR ---
SW following. Discussed with RN, pt from home with , room air, ada diet, ad carla. COVID-19 negative. Pt on IV abx. ID and Wound care following. SW will continue to follow.
[2021-03-21 11:00] VITALS: BP 131/80
[2021-03-21] MEDS: VANCOMYCIN PER PHARMACY MC PRN (11:27)
--- NOTE | 2021-03-21 11:30 | NUR ---
Pharmacy Vancomycin Dosing Note S:Consulted to monitor and dose vancomycin started 03/20/21. O:ARACELIS CABA is a 50 year old M with Cellulitis . Height: 6 feet, 0 inches Weight: 145.4 kg [place] Body Weight: 77.60 Adjusted Body Weight: 104.72 Dosing Weight: Actual Other Antibiotics: LABS: Last BUN: 16 Last Creatinine: 1.0 Creatinine Clearance: 128 mL/min Last WBC: 8.1 Last Procalcitonin: Tmax (past 24 hours): 98.7 Microbiology: NGTD I/O: 2700 / 3 voids Drug Levels: Last Trough level: 21.4 on 03/21/21 at 0945 Last dose given 03/21/21 at 0220 Vancomycin Dosing: Loading Dose: 2000 mg x1 Dosing Weight: Actual Target Trough: 10-20 PHARMACY MIXED MEDICATION AND SENT TO ER A: Based on trough of 21.4: P: 1. Increase Vancomycin to 1750 mg IV q12h. 2. Follow up Trough levels as needed. 3. Pharmacy will continue to monitor, follow and adjust therapy as needed. Vahid Tate [facility], 03/21/21 1545
[2021-03-21] MEDS: VANCOMYCIN 1.75 GM in IV NORMAL SALINE 500ML BAG 500 ML IV SCH (13:12)
--- NOTE | 2021-03-21 14:09 | NUR ---
Wound/Ostomy Care Wound Type/Assessment: Wound care consult for wound care patient that cam in for cellulitis of the LLE. Pt is bein seen in [facility] for RLE VLU. Removed compression wrap and redressed wound. Treatment Recommendations/Plan: Cleanse wound, apply contact layer, cover with abd and kerlix. Education provided: POC and PU prevention. Pt educated to keep legs elevated at all times. Offloading surface/device: na patient is a self turn Recommended Referrals/Tests: na Discharge Recommendations for dressings: see above
[2021-03-21 15:00] VITALS: BP 153/80
[2021-03-21 19:00] VITALS: BP 132/76
[2021-03-21] MEDS: DOCUSATE SODIUM 100 MG CAPSULE. PO SCH (20:33)
[2021-03-21] MEDS: LACTOBACILLUS RHAMNOSUS GG 1 CAPSULE. PO SCH (20:33)
[2021-03-21] MEDS: ASPIRIN CHEWABLE 81 MG TABLET. PO SCH (20:33)
[2021-03-21] MEDS: ATORVASTATIN CALCIUM 20 MG TABLET PO SCH (20:33)
[2021-03-21] MEDS: INSULIN GLARGINE SYRINGE. SQ SCH (20:43)
[2021-03-21 23:00] VITALS: BP 118/75
[2021-03-22] MEDS: VANCOMYCIN 1.75 GM in IV NORMAL SALINE 500ML BAG 500 ML IV SCH ×2 (00:53→14:44)
[2021-03-22 03:00] VITALS: BP 134/72
[2021-03-22 07:00] VITALS: BP 144/82
--- NOTE | 2021-03-22 08:58 | PDOC ---
Provider Note Date of Service: DATE: 03/22/21 TIME: 08:52 Provider Note vss, no temp, glucose good , bc neg- L leg looks less tender- will likely go to keflex tomorrow and dc, add lamisil later re tinea pedis/nails- Td and covid vax utd Justifications for Admission Other Justification LELAND GONZÁLES MD Mar 22, 2021 08:58
[2021-03-22] MEDS: IBUPROFEN 200 MG PO PRN ×2 (09:48→21:49)
[2021-03-22] MEDS: CALCIUM CARB/VIT D3 500/200 TABLET. PO SCH ×2 (09:49→17:00)
[2021-03-22] MEDS: LACTOBACILLUS RHAMNOSUS GG 1 CAPSULE. PO SCH ×2 (09:49→21:48)
[2021-03-22] MEDS: metFORMIN 500 MG TABLET PO SCH ×2 (09:49→18:08)
[2021-03-22] MEDS: CHOLECALCIFEROL (VITAMIN D3) 1,000 UNIT TABLET PO SCH (09:49)
[2021-03-22] MEDS: OMEGA-3 FATTY ACIDS/FISH OIL 1,000 MG CAPSULE. PO SCH ×2 (09:50→18:08)
[2021-03-22] MEDS: POTASSIUM CHLORIDE 20 MEQ TABLET.ER. PO SCH ×2 (09:50→18:08)
[2021-03-22] MEDS: hydroCHLOROthiazide 25 MG TABLET PO SCH (09:51)
[2021-03-22] MEDS: LOSARTAN POTASSIUM 50 MG TABLET. PO SCH (09:51)
[2021-03-22] MEDS: CEFEPIME HCL IV Push 2 GM VIAL. IVP SCH ×2 (09:52→21:48)
[2021-03-22] MEDS: AMMONIUM LACTATE 12% TOPICAL LOTION 225GM BOTTLE. TP SCH ×2 (09:56→21:59)
--- NOTE | 2021-03-22 10:43 | PDOC ---
Infectious Disease Note Subjective Subjective Patient is feeling better ROS ROS No nausea vomiting diarrhea Vital Sign Vital Signs Vital Signs Date Time Temp Pulse Resp B/P (MAP) Pulse Ox O2 Delivery O2 Flow Rate FiO2 03/22/21 09:51 67 144/82 03/22/21 07:00 97.8 20 95 Room Air 97.8 Physical Exam PHYSICAL EXAM GENERAL: Alert, oriented gentleman, not in any distress. VITAL SIGNS: Stable, afebrile. HEENT: NAD. NECK: Supple, no JVP, no lymphadenopathy. LUNGS: Clear. HEART: S1, S2 regular. ABDOMEN: Soft, nontender, no organomegaly. EXTREMITIES: Right lower extremity has a Profore dressing in place, not opened. Apparently, there is ulcer and Wound Care is taking care of it and venous turn machine operator laser therapy has been planned. Left lower extremity has venous insufficiency changes present. There is a discoloration with a tenderness and edema of the left leg all the way from the knee to the ankle. There is no open wound. Dorsalis pedis is weakly palpable. NEUROLOGIC: The patient is alert, awake, and appropriate. No focal neurologic deficit. Labs Lab Laboratory Tests Test 03/21/21 11:16 03/21/21 14:41 03/22/21 07:40 Glucose (Fingerstick) 232 mg/dL (70-99) 173 mg/dL (70-99) 104 mg/dL (70-99) Micro Microbiology 03/20/21 Blood Culture - Preliminary, Resulted NO GROWTH AFTER 2 DAYS Objective Assessment IMPRESSION: 1. Left lower extremity cellulitis, failed outpatient therapy. 2. Diabetes mellitus. 3. Obesity. 4. Hypertension. 5. Venous insufficiency. Plan Plan of Care Needs leg elevation as much as possible Continue antibiotics PT OT JACEY KASPER MD Mar 22, 2021 10:43
[2021-03-22 11:35] VITALS: BP 134/75
[2021-03-22 15:33] VITALS: BP 130/65
[2021-03-22 19:43] VITALS: BP 119/69
[2021-03-22] MEDS: ATORVASTATIN CALCIUM 20 MG TABLET PO SCH (21:48)
[2021-03-22] MEDS: ASPIRIN CHEWABLE 81 MG TABLET. PO SCH (21:48)
[2021-03-22] MEDS: DOCUSATE SODIUM 100 MG CAPSULE. PO SCH (21:49)
[2021-03-22] MEDS: INSULIN GLARGINE SYRINGE. SQ SCH (22:04)
[2021-03-22 23:43] VITALS: BP 128/71
[2021-03-23] MEDS: VANCOMYCIN 1.75 GM in IV NORMAL SALINE 500ML BAG 500 ML IV SCH (02:41)
[2021-03-23 03:29] VITALS: BP 117/67
[2021-03-23 07:00] VITALS: BP 130/66
[2021-03-23 07:59] LABS: CREATININE 0.9 mg/dL (0.7-1.3); GFR 88.6
--- NOTE | 2021-03-23 08:20 | PDOC ---
Infectious Disease Note Subjective Subjective Patient is feeling better ROS ROS No nausea vomiting diarrhea leg pain and swelling is better Vital Sign Vital Signs Vital Signs Date Time Temp Pulse Resp B/P (MAP) Pulse Ox O2 Delivery O2 Flow Rate FiO2 03/23/21 07:00 97.7 63 17 130/66 (87) 99 Room Air 97.7 Physical Exam PHYSICAL EXAM GENERAL: Alert, oriented gentleman, not in any distress. VITAL SIGNS: Stable, afebrile. HEENT: NAD. NECK: Supple, no JVP, no lymphadenopathy. LUNGS: Clear. HEART: S1, S2 regular. ABDOMEN: Soft, nontender, no organomegaly. EXTREMITIES: Right lower extremity has a Profore dressing in place, not opened. Apparently, there is ulcer and Wound Care is taking care of it and venous grubber laser therapy has been planned. Left lower extremity has venous insufficiency changes present. There is a discoloration with a tenderness and edema of the left leg all the way from the knee to the ankle. There is no open wound. Dorsalis pedis is weakly palpable. NEUROLOGIC: The patient is alert, awake, and appropriate. No focal neurologic deficit. Labs Lab Laboratory Tests Test 03/22/21 22:01 03/23/21 06:35 03/23/21 08:07 Glucose (Fingerstick) 162 mg/dL (70-99) 84 mg/dL (70-99) Creatinine 0.9 mg/dL (0.7-1.3) Estimated GFR (Cockcroft-Gault) 88.6 Micro Microbiology 03/20/21 Blood Culture - Preliminary, Resulted NO GROWTH AFTER 2 DAYS Objective Assessment IMPRESSION: 1. Left lower extremity cellulitis, failed outpatient therapy. 2. Diabetes mellitus. 3. Obesity. 4. Hypertension. 5. Venous insufficiency. Plan Plan of Care Needs leg elevation as much as possible Continue antibiotics okay to change to oral for discharge Augmentin PT OT JACEY KASPER MD Mar 23, 2021 08:20
--- NOTE | 2021-03-23 08:33 | PDOC ---
Provider Note Date of Service: DATE: 03/23/21 TIME: 08:32 Provider Note [id number] Justifications for Admission Other Justification LELAND GONZÁLES MD Mar 23, 2021 08:33
[2021-03-23] MEDS: IBUPROFEN 200 MG PO PRN (08:43)
[2021-03-23] MEDS: CEFEPIME HCL IV Push 2 GM VIAL. IVP SCH (08:44)
[2021-03-23] MEDS: hydroCHLOROthiazide 25 MG TABLET PO SCH (08:44)
[2021-03-23] MEDS: LOSARTAN POTASSIUM 50 MG TABLET. PO SCH (08:45)
[2021-03-23] MEDS: CALCIUM CARB/VIT D3 500/200 TABLET. PO SCH (08:45)
[2021-03-23] MEDS: OMEGA-3 FATTY ACIDS/FISH OIL 1,000 MG CAPSULE. PO SCH (08:45)
[2021-03-23] MEDS: metFORMIN 500 MG TABLET PO SCH (08:46)
[2021-03-23] MEDS: POTASSIUM CHLORIDE 20 MEQ TABLET.ER. PO SCH (08:46)
[2021-03-23] MEDS: LACTOBACILLUS RHAMNOSUS GG 1 CAPSULE. PO SCH (08:46)
[2021-03-23] MEDS: CHOLECALCIFEROL (VITAMIN D3) 1,000 UNIT TABLET PO SCH (08:47)
[2021-03-23] MEDS: AMMONIUM LACTATE 12% TOPICAL LOTION 225GM BOTTLE. TP SCH (08:48)
--- NOTE | 2021-03-23 09:06 | DS ---
DATE OF DISCHARGE: 03/23/2021 HOSPITAL SUMMARY: A 50-year-old white male with obesity and venous stasis dermatitis has failed outpatient therapy for left leg cellulitis with a week of doxycycline and Bactrim. He came in for IV treatment with continued pain, redness and swelling of the lower extremity below the knee. CBC and chemistry profile was unremarkable. Urine was clear. Blood cultures were negative. COVID serology was negative. X-rays of the left lower leg were unremarkable. He received IV vancomycin throughout the hospital stay and clinically improved and was afebrile throughout the hospital stay. At this time, he is feeling better and able to transition to oral therapy. FINAL DIAGNOSES: 1. Cellulitis of the left lower extremity, failed outpatient therapy. 2. Type 2 diabetes mellitus, controlled. 3. Venous stasis insufficiency. OPERATIONS, PROCEDURES, AND COMPLICATIONS: None. CONSULTATION: Dr. Ted Merida. DISPOSITION: We will switch to cephalexin 500 mg 3 times a day to cover group B strep and group A strep. Office followup with Dr. Becker in 1 week. Tetanus status is up-to-date. Off work until he has his venous surgery on his right leg per Dr. 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 IVIS/LATRICE DR: IVIS/agnieszka TID: [id number]
[2021-03-23] MEDS: VANCOMYCIN PER PHARMACY MC PRN (10:51)
[2021-03-23 11:00] VITALS: BP 136/76
--- NOTE | 2021-03-23 11:40 | NUR ---
patient discharged home with . wound care instructions, med instructions, and follow up given. patient wanted to see wound care staff before leaving so he and his walked down there after being discharged. IV removed intact. pt stable upon dc.
--- NOTE | 2021-03-23 12:12 | NUR ---
SW following. Discussed with RN, pt discharged home this morning. RN advised no SW needs.
== END 2021-03-23 11:50 | disposition home or self-care (01) | DRG 872 ==
LOC: ER 09:19 → 5 SOUTH 11:06
PROVIDERS: ADMIT Family Medicine; ATTEND Family Medicine
DX: A41.9 Sepsis, unspecified organism (principal); L03.116 Cellulitis of left lower limb; Z68.41 Body mass index [BMI] 40.0-44.9, adult; I10 Essential (primary) hypertension; I87.2 Venous insufficiency (chronic) (peripheral); I87.8 Other specified disorders of veins; L85.9 Epidermal thickening, unspecified; E11.9 Type 2 diabetes mellitus without complications; B35.3 Tinea pedis; E78.00 Pure hypercholesterolemia, unspecified; E66.9 Obesity, unspecified; Z20.822 Contact with and (suspected) exposure to COVID-19; I25.2 Old myocardial infarction; Z88.6 Allergy status to analgesic agent
CPT/HCPCS: 36415; 73590; 80053; 80202; 81001; 82565; 82962; 83605; 83880; 84484; 85025; 85651; 86140; 87040; 87426; 93005; 96365; 96366; J0692; J1815; J3370; J7030; J7040; U0003; U0005; 99285-25; G0378

== ENCOUNTER → 2021-04-02 | Outpatient (CLI) | payer OTHER ==
[2021-03-23 11:00] VITALS: BP 136/76
[~2021-04-02] MED LIST changes: +ATOR20TA58 PO; +CALC600T60 PO; +EMPA25TA PO; +IBUP-1060 PO; +INSU100I13 SQ; +LIDOCAINE 1%/EPI 1:100,000 50 ML, SODIUM BICARBONATE VIAL 5 MEQ in IV NORMAL SALINE 100... SQ STA
--- NOTE | 2021-04-02 14:04 | CARD ---
MR#: [id number] Date of Study: 04/02/2021 Ordering Physician: DAVIS BARBER, Referring Physician: DAVIS BARBER, Tech: Carol Cross RVT; Parish Holliday CDT APPROVED REPORT Patient StatusOUT-PATIENT Commission Specialist: Carol Cross RVT; Parish Holliday CDT Procedure(s) performed: Endovenous radiofrequency ablation of the Right greater saphenous vein. INDICATION FOR PROCEDURE The indication(s) include : Symptomatic Chronic Venous Insufficiency with hypertension, inflammation, Varicose Veins, lower extremity pain, edema and ulcer. PROCEDURE NARRATIVE The patient was transferred to the procedure suite and the insufficient saphenous vein was mapped by ultrasound and diagrammed on the underlying skin. The depth and diameter of the vein(s) to be treate d was documented. The varicose tributary veins and suitable access sites were identified and mapped as well. The patient was then positioned supine on the procedure table. The entire limb was sterile ly prepared and the lower extremity and treatment table were sterilely draped. The RF catheter was placed on the sterile field, flushed and wiped down, prepared, and connected by a sterile cable. The patient was placed in reverse-Trendelenburg position and local anesthesia was instilled in the sk in overlying the access site. A skin incision was made overlying the identified and mapped greater s aphenous vein entry site. The vein was punctured through the incision and using ultrasound guidance and the Seldinger technique a guide wire was introduced through the needle which was then exchanged o salvador the guide wire for a 6 F sheath. The guide wire was removed and the sheath was flushed. The RF probe was placed into the vein through the sheath and positioned at a point just distal (about 0.5 to 1 cm) to the entrance point of the superficial epigastric artery using ultrasound guidance. After the RF probe position was verified by the ultrasound, tumescent anesthesia was infiltrated, und er ultrasound guidance, precisely into the perivenuus compartment along the entire length of vein fro m the entry site to the saphenofemoral junction until a "halo" of fluid was noted around the vein. The patient was then placed in Trendelenburg position. After the RF probe position was again confirm ed with ultrasound imaging, moderate external compression was applied over the RF heating element, an d RF energy was applied. The probe was withdrawn sequentially in 10 cm steps of ablation and monitor ed to keep the probe temperature at 120 degrees Celsius and the generator output well below its maxim um power. Treatment Segments: 7 Total Length: 46 cm. Total Ablation time: 2 minutes 8 secs. Repeat ultrasound of the saphenous vein was performed confirming successful treatment. The catheter and sheath were withdrawn and hemostasis established with direct pressure. After assuring hemostasis , the skin incision over the saphenous vein was closed with a bandage and an external compression mitch ssing was applied from the level of the foot to the most proximal level of the thigh. Signed by : Davis Barber, Electronically Approved : 04/02/2021 14:03:50
== END | disposition home or self-care (01) ==
LOC: VNUS 12:15
PROVIDERS: ATTEND Internal Medicine Cardiovascular Disease
DX: I87.2 Venous insufficiency (chronic) (peripheral) (principal); I10 Essential (primary) hypertension; M79.604 Pain in right leg; I83.91 Asymptomatic varicose veins of right lower extremity; E78.00 Pure hypercholesterolemia, unspecified; E66.9 Obesity, unspecified; Z79.82 Long term (current) use of aspirin; Z79.899 Other long term (current) drug therapy; Z98.890 Other specified postprocedural states; Z88.8 Allergy status to other drugs, medicaments and biological substances; Z82.49 Family history of ischemic heart disease and other diseases of the circulatory system
CPT/HCPCS: 36475; J3490; J7030

== ENCOUNTER → 2021-04-03 | Outpatient (CLI) | payer OTHER ==
[2021-03-23 11:00] VITALS: BP 136/76
[~2021-04-03] MED LIST changes: -LIDOCAINE 1%/EPI 1:100,000 50 ML, SODIUM BICARBONATE VIAL 5 MEQ in IV NORMAL SALINE 100... SQ STA
--- NOTE | 2021-04-03 11:53 | RAD ---
MR#: [id number] Date of Study: 04/03/2021 Ordering Physician: LUTHER MCCLURE, Referring Physician: LUTHER MCCLURE, Tech: Carol Cross RDMS, RVT, RTR APPROVED REPORT Right Lower Extremity Venous Study for DVT Patient Location: OUT-PATIENT Indications Stasis Disease Post Op Right GSV ablation; Check for DVT Findings Grayscale images of the right saphenofemoral junction are grossly unremarkable. There is clot noted at the level of the proximal greater saphenous vein distal to the saphenofemoral junction and no evid ence of DVT. The right GSV clot is consistent with recent ablation. The right superficial femoral, popliteal and below-knee veins appear to be compressible with spontane ous flow. No evidence of DVT noted Critical Notification Critical Value: No <Conclusion> 1. Successful right greater saphenous vein ablation 2. Negative for DVT in the right lower extremity Signed by : Luther Mcclure, Electronically Approved : 04/03/2021 11:52:42
== END ==
LOC: US 11:29
PROVIDERS: ATTEND Internal Medicine Cardiovascular Disease
DX: I87.2 Venous insufficiency (chronic) (peripheral) (principal)
CPT/HCPCS: 93971

== ENCOUNTER → 2021-04-13 | Outpatient (CLI) | payer OTHER ==
[2021-03-23 11:00] VITALS: BP 136/76
--- NOTE | 2021-04-13 11:14 | RAD ---
Left lower extremity venous duplex study Clinical History: Lower extremity pain Technique: Using a combination of real time ultrasound imaging and color-flow and pulse Doppler imagi ng techniques, including spectral analysis, graded compression and augmentation, duplex evaluation of the deep venous system of the left lower extremity was performed. Multiple images were obtained. Findings: There is no sonographic evidence of deep venous thrombosis involving the visualized deep ve nous structures of the left lower extremity. The left great saphenous vein measures 6 mm proximally, 6 mm at the saphenofemoral junction. Significant reflux is identified in the great saphenous vein. A somewhat prominent perforators noted in the calf 3 cm up to 3 cm back. Lesser saphenous vein is paten t. IMPRESSION: 1. No evidence of deep venous thrombosis involving the left lower extremity. 2. No sonographic evidence of venous reflux involving the left great saphenous vein Electronically signed by: Roberto Adan MD (04/13/2021 11:12 AM) [id number]
== END ==
LOC: US 09:40
PROVIDERS: ATTEND Preventive Medicine Undersea and Hyperbaric Medicine
DX: I87.1 Compression of vein (principal); I87.312 Chronic venous hypertension (idiopathic) with ulcer of left lower extremity; L03.116 Cellulitis of left lower limb; L97.221 Non-pressure chronic ulcer of left calf limited to breakdown of skin
CPT/HCPCS: 93971

== ENCOUNTER 2021-09-08 23:05 | Emergency (ER) | payer OTHER ==
[~2021-09-08] VITALS: Ht 185.4 cm; Wt 153.5 kg
[~2021-09-08 23:05] MED LIST changes: -EMPA25TA PO; +EMPA25TA3 PO
[2021-09-09] MEDS ORDERED: ACETAMINOPHEN 325 MG TABLET. PO ONE (00:30)
--- NOTE | 2021-09-09 00:36 | PHYS DOC ---
Past Medical History Past Medical History: Diabetes-Type II, Hypertension, AR Additional Past Medical Histor: CELLULITIS, SLEEP APNEA Past Surgical History: Tonsillectomy, Other Additional Past Surgical Histo: BILATERAL MENISCUS REPAIR TO KNEES Smoking Status: Never Smoker Alcohol Use: None Drug Use: None General Adult EDM: Chief Complaint: FEVER HPI: HPI: Patient is a 50 year old male presents for evaluation of chills. Patient took ibuprofen with improvement of symptoms. On arrival patient febrile. No other symptoms. Patient states similar symptoms with previous episodes of cellulitis. Review of Systems: Review of Systems: Constitutional: positive fever and chills. [] Eyes: Denies change in visual acuity. [] HENT: Denies nasal congestion or sore throat. [] Respiratory: Denies cough or shortness of breath. [] Cardiovascular: Denies chest pain or edema. [] GI: Denies abdominal pain, nausea, vomiting, bloody stools or diarrhea. [] : Denies dysuria. [] Musculoskeletal: Denies back pain or joint pain. [] Integument: Denies rash. [] Neurologic: Denies headache, focal weakness or sensory changes. [] Endocrine: Denies polyuria or polydipsia. [] Lymphatic: Denies swollen glands. [] Psychiatric: Denies depression or anxiety. [] Heart Score: C/O Chest Pain: N/A Risk Factors: Risk Factors: DM, Current or recent (<one month) smoker, HTN, HLP, family history of CAD, obesity. Risk Scores: Score 0 - 3: 2.5% MACE over next 6 weeks - Discharge Home Score 4 - 6: 20.3% MACE over next 6 weeks - Admit for Clinical Observation Score 7 - 10: 72.7% MACE over next 6 weeks - Early Invasive Strategies Current Medications: Current Medications Medications (Trade) Dose Ordered Sig/Mariama Start Time Stop Time Status Last Admin Dose Admin Acetaminophen (Tylenol) 650 mg 1X ONCE 09/09/21 00:30 09/09/21 00:31 DC Allergies: Allergies: Allergies Coded Allergies Type Severity Reaction Last Updated Verified ibuprofen Allergy Severe Swelling, throat 03/23/21 Yes naproxen Allergy Severe Swelling 11/26/15 Yes omeprazole Allergy Unknown 09/09/21 Yes Physical Exam: PE: Constitutional: Well developed, well nourished, no acute distress, non-toxic appearance. [] HENT: Normocephalic, atraumatic, bilateral external ears normal, oropharynx moist, no oral exudates, nose normal. [] Eyes: PERRLA, EOMI, conjunctiva normal, no discharge. [] Neck: Normal range of motion, no tenderness, supple, no stridor. [] Cardiovascular:Heart rate regular rhythm, no murmur [] Lungs & Thorax: Bilateral breath sounds clear to auscultation [] Abdomen: Bowel sounds normal, soft, no tenderness, no masses, no pulsatile masses. [] Skin: Warm, dry, no erythema, no rash. [] Back: No tenderness, no CVA tenderness. [] Extremities: No tenderness, no cyanosis, no clubbing, ROM intact, no edema. [] Neurologic: Alert and oriented X 3, normal motor function, normal sensory function, no focal deficits noted. [] Psychologic: Affect normal, judgement normal, mood normal. [] Current Patient Data: Vital Signs: Vital Signs Date Time Temp Pulse Resp B/P (MAP) Pulse Ox O2 Delivery O2 Flow Rate FiO2 09/09/21 00:06 102.2 89 18 165/84 (111) 97 Room Air 102.2 EKG: EKG: [] Radiology/Procedures: Radiology/Procedures: [] Course & Med Decision Making: Course & Med Decision Making Pertinent Labs and Imaging studies reviewed. (See chart for details) [] Dragon Disclaimer: Dragon Disclaimer: This electronic medical record was generated, in whole or in part, using a voice recognition dictation system. Departure Departure Impression: Primary Impression: Fever Additional Impression: Chills Disposition: 01 HOME / SELF CARE / HOMELESS Condition: STABLE Referrals: STAR POLANCO MD (PCP) Patient Instructions: Viral Syndrome Scripts Doxycycline Hyclate (DOXYCYCLINE HYCLATE) 100 Mg Capsule 1 CAP PO BID, #20 CAP Prov: NESTOR CAO DO 09/09/21 NESTOR CAO DO Sep 09, 2021 00:36
[2021-09-09 01:00] LABS: INFLUENZA A PATIENT NEGATIVE (NEGATIVE); INFLUENZA B PATIENT NEGATIVE (NEGATIVE)
[2021-09-09 01:06] VITALS: BP 126/62
[2021-09-09] MEDS ORDERED: DOXY100C3 PO (01:15)
== END 2021-09-09 01:40 | disposition home or self-care (01) ==
LOC: ER 23:05
DX: R50.9 Fever, unspecified (principal); E11.9 Type 2 diabetes mellitus without complications; Z20.822 Contact with and (suspected) exposure to COVID-19; I10 Essential (primary) hypertension; I25.2 Old myocardial infarction; Z88.5 Allergy status to narcotic agent; Z88.8 Allergy status to other drugs, medicaments and biological substances
CPT/HCPCS: 87428; 99283